=== PATIENT | male | born 1930 | race Caucasian/White ===

== ENCOUNTER 2016-07-25 04:34 | Inpatient (IN) | payer MEDICARE, OTHER ==
[2016-07-25] VITALS (8 sets, daily range): BP systolic 119–176; BP diastolic 66–91; PULSE 71–127; RESP 16–20; TEMP 97.4–99.8; O2SAT 93–99
[~2016-07-25 04:34] MED LIST: AMOX500T PO; ASPI81 CHEW; CARV12.5 PO; ENOX40P SQ; FOLI1 PO; FURO1TAB93 PO; LISI5 PO; LORTA5 PO; MAGN64 PO; MIRTA15 PO; MULT-65 PO; NOVO7030P2 SQ; PRIM250T PO; SIMV20TA PO; TAMS0.4C67 PO; THERM PO; THIA100T PO; ULTR50TA5 PO
[2016-07-25] MEDS ORDERED: SODIUM CHLORIDE 0.9% FLUSH 10 ML FLUSH IVF PRN (04:45)
[2016-07-25] MEDS ORDERED: CARV12.5 PO (04:54)
[2016-07-25] MEDS ORDERED: THIAPOW36 (04:54)
[2016-07-25] MEDS ORDERED: MAGN64 PO (04:54)
[2016-07-25] MEDS ORDERED: MULT1TAB84 PO (04:54)
[2016-07-25] MEDS ORDERED: LISI-519 PO (04:54)
[2016-07-25] MEDS ORDERED: FURO1TAB60 PO (04:54)
[2016-07-25] MEDS ORDERED: NOVO7030P2 SQ (04:54)
[2016-07-25] MEDS ORDERED: PRIM250T5 PO (04:54)
[2016-07-25] MEDS ORDERED: MIRTA15 PO (04:54)
[2016-07-25] MEDS ORDERED: ASPI81CH37 CHEW (04:54)
[2016-07-25] MEDS ORDERED: TAMS5CAP PO (04:54)
[2016-07-25] MEDS ORDERED: FOLI5CAP PO (04:54)
[2016-07-25] MEDS ORDERED: ZOCO20TA PO (04:54)
--- NOTE | 2016-07-25 06:06 | RADRPT ---
EXAM DATE/TIME: 07/25/2016 05:46 [place] COMPARISON: CT BRAIN W/O CONTRAST, December 15, 2014, 12:21. INDICATIONS : Trauma; fall. RADIATION DOSE: 47.79 CTDIvol (mGy) MEDICAL HISTORY : Cardiovascular disease. Congestive heart failure. Chronic obstructive pulmonary disease.Hypertension, asthma, GERD, Diabetes SURGICAL HISTORY : CABG vasectomy, neck fusion ENCOUNTER: Initial ACUITY: 1 day PAIN SCALE: Non-responsive LOCATION: cranial TECHNIQUE: Multiple contiguous axial images were obtained of the head. Using automated exposure control and adj ustment of the mA and/or kV according to patient size, radiation dose was kept as low as reasonably a chievable to obtain optimal diagnostic quality images. FINDINGS: CEREBRUM: Atrophy. There is prominence to the ventricular system which is symmetrical in nature. This is somewh at out of proportion to the sulcal pattern. The appearance is stable from the prior study. No evidenc e of midline shift, mass lesion, hemorrhage or acute infarction. No extra-axial fluid collections ar e seen. POSTERIOR FOSSA: The cerebellum and brainstem are intact. The 4th ventricle is midline. The cerebellopontine angle i s unremarkable. EXTRACRANIAL: The visualized portion of the orbits is intact. Craniocervical fusion hardware seen at the occiput. SKULL: The calvaria is intact. No evidence of skull fracture. CONCLUSION: 1. No acute intracranial abnormality. 2. Prominence of the ventricular system which is stable from the prior exam. Although this could rela te to more centralized forms of atrophy I cannot exclude normal pressure hydrocephaly. Bradley Melendez Jr., MD on July 25, 2016 at 6:02 Board Certified Radiologist. This report was verified electronically.
[2016-07-25 06:52] LABS: AUTOMATED NEUTROPHIL # 7.3 TH/MM3 (1.8-7.7); BASOPHIL # 0.1 TH/MM3 (0-0.2); BASOPHIL % 0.6 % (0.0-2.0); EOSINOPHIL # 0.3 TH/MM3 (0-0.4); EOSINOPHIL % 3.3 % (0.0-4.0); HEMO FLAGS DIFF FINAL; LYMPH % 10.1 % (9.0-44.0); MEAN CELL VOLUME 93.3 FL (80.0-100.0); MEAN CORPUSCULAR HGB CONC 33.2 % (32.0-36.0); MONO % 8.2 % (0.0-8.0); NEUT % 77.8 % (16.0-70.0); PLATELET COUNT 197 TH/MM3 (150-450); RED BLOOD COUNT 3.97 MIL/MM3 (4.50-5.90); RED CELL DISTRIBUTION WIDTH 14.5 % (11.6-17.2); WHITE BLOOD COUNT 9.4 TH/MM3 (4.0-11.0)
[2016-07-25 07:04] LABS: BICARBONATE 27.5 MEQ/L (21.0-32.0); POTASSIUM 4.1 MEQ/L (3.5-5.1)
--- NOTE | 2016-07-25 07:35 | PD ---
HPI Chief Complaint: Altered Mental Status Time Seen by Provider: 04:37 Travel History International Travel<30 days: No Contact w/Intl Traveler<30days: No Traveled to known affect area: No History of Present Illness HPI Patient's 85 years old. He arrives by EMS. He was found face down on a phone mattress in his house. Evidently he fell there and slept throughout the course of the night. The family members called EMS. They were concerned he has urinary tract infection. The ER the patient offers no history. He suffers w memory loss PFSH Past Medical History Arthritis: Yes Asthma: Yes Atrial Fibrillation: Yes Anxiety: Yes Depression: Yes Cancer: Yes (skin) Cardiac Catheterization: Yes (12 STENTS TOTAL) Cardiovascular Problems: Yes High Cholesterol: Yes Chest Pain: Yes Congestive Heart Failure: Yes COPD: Yes Cerebrovascular Accident: No Coronary Artery Disease: Yes Diabetes: Yes Diminished Hearing: No Endocrine: Yes Gastrointestinal Disorders: No Genitourinary: No Hypertension: Yes Immune Disorder: No Musculoskeletal: Yes Neurologic: Yes (TREMORS) Psychiatric: Yes Reproductive: Yes Respiratory: Yes Migraines: No Renal Failure: No Tetanus Vaccination: > 5 Years Influenza Vaccination: Yes PNEUMOCCOCAL Vaccine (Year): 1 Past Surgical History Abdominal Surgery: No AICD: No Arteriovenous Shunt: No Body Medical Devices: 13 cardiac stents Cardiac Surgery: Yes (cardiac bypass with 13 stents placed 1998) Coronary Artery Bypass Graft: Yes (5 VESSEL) Coronary Stent: Yes Ear Surgery: No Endocrine Surgery: No Eye Surgery: No Genitourinary Surgery: Yes (vasectomy) Gynecologic Surgery: No Insulin Pump: No Joint Replacement: No Neurologic Surgery: Yes (C3-4 FUSION) Oral Surgery: No Pacemaker: No Thoracic Surgery: No Other Surgery: Yes (DISCECTOMY x 3;VERTBRAE REMOVAL) Social History Alcohol Use: No Tobacco Use: No (QUIT IN 1984) Substance Use: No Allergies-Medications (Allergen,Severity, Reaction): Coded Allergies: Plavix (Unverified Allergy, Severe, bleeding, 07/25/16) Lipitor (Unverified Allergy, Intermediate, bleeding, 07/25/16) Uncoded Allergies: morph (Allergy, Unknown, makes him crazy, 05/06/14) Reported Meds & Prescriptions Reported Meds & Active Scripts Active Levaquin (Levofloxacin) 500 Mg Tab 500 Mg PO DAILY Ultram (Tramadol HCl) 50 Mg Tab 50 Mg PO Q6H PRN Reported Thiamine HCl 1 Pow Pow Flomax (Tamsulosin HCl) 0.4 Mg Cap 0.4 Mg PO DAILY Zocor (Simvastatin) 20 Mg Tab 20 Mg PO HS Primidone 250 Mg Tab 250 Mg PO TID Multivitamin Adults (Multiple Vitamins W/ Minerals) 1 Tab 1 Tab PO DAILY Mirtazapine 15 Mg Tab 15 Mg PO HS Mag64 (Magnesium Chloride) 64 Mg Tab 64 Mg PO BID Lisinopril 5 Mg Tab 5 Mg PO DAILY Novolin 70-30 Inj (Insulin Human Isoph/Insulin Regular) 1,000 Unit/10 Ml Vial 5 Units SQ DAILY NEB Folic Acid 5 Mg Cap 1 Mg PO DAILY Lasix (Furosemide) 40 Mg Tab 40 Mg PO DAILY Coreg (Carvedilol) 12.5 Mg Tab 12.5 Mg PO BID Aspirin Low Dose (Aspirin) 81 Mg Chew 81 Mg CHEW DAILY Review of Systems ROS Limitations: Altered Mental Status Physical Exam Narrative GENERAL: 85-year-old male no acute distress SKIN: Focused skin assessment warm/dry. HEAD: Atraumatic. Normocephalic. Contusion about the forehead approximately 1 cm linear in configuration EYES: Pupils equal and round. No scleral icterus. No injection or drainage. ENT: No nasal bleeding or discharge. Mucous membranes pink and moist. NECK: Trachea midline. No JVD. CARDIOVASCULAR: Regular rate and rhythm. No murmur appreciated. RESPIRATORY: No accessory muscle use. Clear to auscultation. Breath sounds equal bilaterally. GASTROINTESTINAL: Abdomen soft, non-tender, nondistended. Hepatic and splenic margins not palpable. MUSCULOSKELETAL: No obvious deformities. No clubbing. No cyanosis. No edema. NEUROLOGICAL: Awake and alert. No obvious cranial nerve deficits. Motor grossly within normal limits. Normal speech. PSYCHIATRIC: Appropriate mood and affect; insight and judgment normal. Data Data Last Documented VS Vital Signs Date Time Temp Pulse Resp B/P Pulse Ox O2 Delivery O2 Flow Rate FiO2 07/25/16 08:33 97.6 84 20 97 Room Air 07/25/16 05:00 158/72 Orders Electrocardiogram (07/25/16 04:37) Basic Metabolic Panel (Bmp) (07/25/16 04:37) Complete Blood Count With Diff (07/25/16 04:37) Urinalysis - C+S If Indicated (07/25/16 04:37) Blood Glucose (07/25/16 04:37) Ecg Monitoring (07/25/16 04:37) Iv Access Insert/Monitor (07/25/16 04:37) Oximetry (07/25/16 04:37) Sodium Chloride 0.9% Flush (Ns Flush) (07/25/16 04:45) Ct Brain W/O Iv Contrast(Rout) (07/25/16 05:39) Sodium Chlorid 0.9% 500 Ml Inj (Ns 500 M (07/25/16 08:15) Urine Culture (07/25/16 08:00) Admit Order (Ed Use Only) (07/25/16 09:43) Admit To Inpatient (07/25/16 ) Vital Signs (Adult) Q4H (07/25/16 09:43) Activity Oob With Assistance (07/25/16 09:43) Diet Heart Healthy (07/25/16 Breakfast) Sodium Chlor 0.9% 1000 Ml Inj (Ns 1000 M (07/25/16 10:00) Sodium Chloride 0.9% Flush (Ns Flush) (07/25/16 09:45) Sodium Chloride 0.9% Flush (Ns Flush) (07/25/16 21:00) Acetaminophen (Tylenol) (07/25/16 09:45) Ondansetron Inj (Zofran Inj) (07/25/16 09:45) Magnesium Hydroxide Liq (Milk Of Magnesi (07/25/16 09:45) Basic Metabolic Panel (Bmp) (07/26/16 06:00) Complete Blood Count With Diff (07/26/16 06:00) Resp Oxygen Benedicto C Titrat 1-4 L (07/25/16 ) Pt Request For Service (07/25/16 09:43) Heparin Inj (Heparin Inj) (07/25/16 11:00) Naloxone Inj (Narcan Inj) (07/25/16 09:45) Inpatient Certification (07/25/16 ) Ceftriaxone Inj (Rocephin Inj) (07/25/16 11:00) Labs Laboratory Tests Test 07/25/16 07/25/16 04:44 08:00 White Blood Count 9.4 TH/MM3 Red Blood Count 3.97 MIL/MM3 Hemoglobin 12.3 GM/DL Hematocrit 37.0 % Mean Corpuscular Volume 93.3 FL Mean Corpuscular Hemoglobin 31.0 PG Mean Corpuscular Hemoglobin 33.2 % Concent Red Cell Distribution Width 14.5 % Platelet Count 197 TH/MM3 Mean Platelet Volume 10.7 FL Neutrophils (%) (Auto) 77.8 % Lymphocytes (%) (Auto) 10.1 % Monocytes (%) (Auto) 8.2 % Eosinophils (%) (Auto) 3.3 % Basophils (%) (Auto) 0.6 % Neutrophils # (Auto) 7.3 TH/MM3 Lymphocytes # (Auto) 1.0 TH/MM3 Monocytes # (Auto) 0.8 TH/MM3 Eosinophils # (Auto) 0.3 TH/MM3 Basophils # (Auto) 0.1 TH/MM3 CBC Comment DIFF FINAL Differential Comment Sodium Level 138 MEQ/L Potassium Level 4.1 MEQ/L Chloride Level 102 MEQ/L Carbon Dioxide Level 27.5 MEQ/L Anion Gap 9 MEQ/L Blood Urea Nitrogen 25 MG/DL Creatinine 0.89 MG/DL Estimat Glomerular Filtration 81 ML/MIN Rate Random Glucose 170 MG/DL Calcium Level 9.0 MG/DL Urine Color YELLOW Urine Turbidity HAZY Urine pH 5.5 Urine Specific [place] 1.021 Urine Protein 30 mg/dL Urine Glucose (UA) NEG mg/dL Urine Ketones 10 mg/dL Urine Occult Blood SMALL Urine Nitrite NEG Urine Bilirubin NEG Urine Urobilinogen 2.0 MG/DL Urine Leukocyte Esterase LARGE Urine RBC 3 /hpf Urine WBC 97 /hpf Urine WBC Clumps MANY Urine Bacteria MANY /hpf Urine Mucus FEW /lpf Microscopic Urinalysis Comment CATH-CULTURE IND MDM Medical Decision Making Medical Screen Exam Complete: Yes Emergency Medical Condition: Yes Medical Record Reviewed: Yes Interpretation(s) CBC & BMP Diagram 07/25/16 04:44 Differential Diagnosis Altered mental status due to infection or metabolic abnormality, intracranial bleed, polypharmacy Narrative Course CBC & BMP Diagram 07/25/16 04:[address] Rhodes. Erna for discharge. Patient poor candidate for any intervention for potential normal pressure hydrocephalus. The patient has an appointment with Dr. Rhodes and [place]. UA pending at time of discharge. Oncoming provider to follow up UA and disposition appropriately. Diagnosis Primary Impression: Falls Qualified Code: W19.XXXA - Falls, initial encounter Referrals: Michael Lorenzo MD 2 days Additional Instructions: You have a choice when it comes to health care, and we are glad that you chose [facility]. Hopefully, we have met your expectations on today's visit. You are welcome to return to [facility] at any time, as we are committed to meeting the health care needs of our community. Scripts Levofloxacin (Levaquin)500 Mg [id number] Mg PO DAILY #9 TAB Ref 0 Prov:Stewart Bruce MD 07/25/16 Disposition: 01 DISCHARGE HOME Condition: Stable (ERASED) Jared Will MD Jul 25, 2016 07:35
[2016-07-25] MEDS ORDERED: SODIUM CHLORID 0.9% 500 ML INJ 500 ML IV ONE (08:15)
[2016-07-25 08:46] LABS: BACTERIA, URINE MANY /hpf; BLOOD, URINE SMALL (NEG); COMMENT (UR) CATH-CULTURE IND; CULTURE IF INDICATED CATH CULTURE IND; GLUCOSE,URINE NEG (NEG); KETONE, URINE 10 mg/dL (NEG); MUCUS URINE FEW /lpf (OCC); NITRITE,URINE NEG (NEG); PH, URINE 5.5 (5.0-8.5); URINE COLOR YELLOW (YELLW/STRAW)
[2016-07-25] MEDS ORDERED: LEVA500T PO (09:00)
[2016-07-25] MEDS ORDERED: LEVOFLOXACIN 500 MG TAB PO ONE (09:00)
--- NOTE | 2016-07-25 09:04 | PD ---
Physical Exam Date Seen by Provider: Jul 25, 2016 Time Seen by Provider: 09:00 Narrative The patient was signed out to me by Dr. Jared Will awaiting a urinalysis. Dr. Will states that he suspected a UTI in this patient. Urinalysis confirms there is a UTI. The patient was given Levaquin 500 mg times one dose here in the emergency department. Data Data Last Documented VS Vital Signs Date Time Temp Pulse Resp B/P Pulse Ox O2 Delivery O2 Flow Rate FiO2 07/25/16 08:33 97.6 84 20 97 Room Air 07/25/16 05:00 158/72 Orders Electrocardiogram (07/25/16 04:37) Basic Metabolic Panel (Bmp) (07/25/16 04:37) Complete Blood Count With Diff (07/25/16 04:37) Urinalysis - C+S If Indicated (07/25/16 04:37) Blood Glucose (07/25/16 04:37) Ecg Monitoring (07/25/16 04:37) Iv Access Insert/Monitor (07/25/16 04:37) Oximetry (07/25/16 04:37) Sodium Chloride 0.9% Flush (Ns Flush) (07/25/16 04:45) Ct Brain W/O Iv Contrast(Rout) (07/25/16 05:39) Sodium Chlorid 0.9% 500 Ml Inj (Ns 500 M (07/25/16 08:15) Urine Culture (07/25/16 08:00) Levofloxacin (Levaquin) (07/25/16 09:00) Labs Laboratory Tests Test 07/25/16 07/25/16 04:44 08:00 White Blood Count 9.4 TH/MM3 Red Blood Count 3.97 MIL/MM3 Hemoglobin 12.3 GM/DL Hematocrit 37.0 % Mean Corpuscular Volume 93.3 FL Mean Corpuscular Hemoglobin 31.0 PG Mean Corpuscular Hemoglobin 33.2 % Concent Red Cell Distribution Width 14.5 % Platelet Count 197 TH/MM3 Mean Platelet Volume 10.7 FL Neutrophils (%) (Auto) 77.8 % Lymphocytes (%) (Auto) 10.1 % Monocytes (%) (Auto) 8.2 % Eosinophils (%) (Auto) 3.3 % Basophils (%) (Auto) 0.6 % Neutrophils # (Auto) 7.3 TH/MM3 Lymphocytes # (Auto) 1.0 TH/MM3 Monocytes # (Auto) 0.8 TH/MM3 Eosinophils # (Auto) 0.3 TH/MM3 Basophils # (Auto) 0.1 TH/MM3 CBC Comment DIFF FINAL Differential Comment Sodium Level 138 MEQ/L Potassium Level 4.1 MEQ/L Chloride Level 102 MEQ/L Carbon Dioxide Level 27.5 MEQ/L Anion Gap 9 MEQ/L Blood Urea Nitrogen 25 MG/DL Creatinine 0.89 MG/DL Estimat Glomerular Filtration 81 ML/MIN Rate Random Glucose 170 MG/DL Calcium Level 9.0 MG/DL Urine Color YELLOW Urine Turbidity HAZY Urine pH 5.5 Urine Specific [place] 1.021 Urine Protein 30 mg/dL Urine Glucose (UA) NEG mg/dL Urine Ketones 10 mg/dL Urine Occult Blood SMALL Urine Nitrite NEG Urine Bilirubin NEG Urine Urobilinogen 2.0 MG/DL Urine Leukocyte Esterase LARGE Urine RBC 3 /hpf Urine WBC 97 /hpf Urine WBC Clumps MANY Urine Bacteria MANY /hpf Urine Mucus FEW /lpf Microscopic Urinalysis Comment CATH-CULTURE IND MDM Medical Record Reviewed: Yes Supervised Visit with ARTURO: No Narrative Course Patient signed out to me by Dr. Will awaiting a urinalysis. Urinalysis and firms UTI. The patient is hemodynamically stable. The patient does have a history of dementia. He is somewhat agitated and combative with staff. He's been given Levaquin 500 mg times one dose. He'll be discharged back to his home where he has a caregiver. He was given a 500 cc bolus for his mild dehydration. Diagnosis Primary Impression: Falls Qualified Code: W19.XXXA - Falls, initial encounter Additional Impressions: Urinary tract infection Mild dehydration Additional Instruction: You have a choice when it comes to health care, and we are glad that you chose [facility]. Hopefully, we have met your expectations on today's visit. You are welcome to return to [facility] at any time, as we are committed to meeting the health care needs of our community. Med/Other Pt SpecificInfo: Prescription(s) given Scripts Levofloxacin (Levaquin)500 Mg [id number] Mg PO DAILY #9 TAB Ref 0 Prov:Stewart Bruce MD 07/25/16 Disposition: 01 DISCHARGE HOME Condition: Stable Stewart Bruce MD Jul 25, 2016 09:04
[2016-07-25] MEDS ORDERED: ONDANSETRON HCL 4 MG/2 ML VIAL IVP PRN (09:45)
[2016-07-25] MEDS ORDERED: MAGNESIUM HYDROXIDE SUSP 30 ML CUP PO PRN (09:45)
[2016-07-25] MEDS ORDERED: LORazepam 2 MG/ML VIAL IV PUSH ONE (09:45)
[2016-07-25] MEDS ORDERED: LEVOFLOXACIN 500 MG PREMIX INJ 100 ML IV ONE (09:45)
[2016-07-25] MEDS ORDERED: ACETAMINOPHEN 325 MG TAB PO PRN (09:45)
[2016-07-25] MEDS ORDERED: NALOXONE HCL 0.4 MG/ML AMP IV PRN (09:45)
[2016-07-25] MEDS ORDERED: SODIUM CHLORIDE 0.9% FLUSH 10 ML FLUSH IV FLUSH PRN (09:45)
[2016-07-25] MEDS: SODIUM CHLOR 0.9% 1000 ML INJ 1,000 ML IV SCH ×2 (10:50→23:53)
[2016-07-25] MEDS: cefTRIAXone INJ 1,000 MG in SODIUM CHLORIDE 0.9% INJ 100 ML IV SCH (10:50)
[2016-07-25] MEDS: HEPARIN SODIUM - SQ 10,000 UNITS/ML VIAL SQ SCH ×2 (10:53→23:54)
--- NOTE | 2016-07-25 15:42 | EKG ---
Date Performed: 07/25/2016 Time Performed: 04:48:40 PTAGE: 85 years EKG: ATRIAL FIBRILLATION With controlled ventricular rate Slight nonspecific intraventricular co nduction delay Diffuse T wave abnomality, slightly more prominent than the prior tracing, but nonspec ific, cannot exclude ischemia ABNORMAL ECG PREVIOUS TRACING : 12/08/2014 18.35 DOCTOR: Corona Mcdaniel Interpretating Date/Time 07/25/2016 15:42:01
--- NOTE | 2016-07-25 16:26 | HHI.HP ---
[facility] [place] [facility] Primary [facility] Physician Michael Lorenzo MD Admission Diagnosis Uti, dehydration, dementia, fall Diagnoses: Chief Complaint: Acute mental status change, UTI. Travel History International Travel<30 Days: No Contact w/Intl Traveler <30 Da: No Traveled to Known Affected Are: No History of Present Illness History obtained mostly from Chart review. Patient is unable to participate in the interview in any meaningful way. Mr. Mccoy is an 85 year old male with a history of CAD, CHF, Afib who presented to the ED due to altered mental status and urinary tract infection. Patient was evaluated by ED physician and initially the plan was to discharge patient home with family members. However, patient's daughter indicated that patient's mental status is not his baseline and she is concerned about infection induce delirium. Patient himself is unable to provide any meaningful information. He is alert but his speech is very incoherent. On arrival, BP 119/ 90, T 98.7, P 89, R 18, 95% on room air. WBC 9.4 with neutrophil 77.8%, Na 138, K 4.1, BUN 25, Creatinine 0.89, Glucose 170. Urinalysis shows evidence of UTI. Review of Systems ROS Limitations: Clinical Condition, Altered Mental Status Past Family Social History Past Medical History CAD, skin cancer, hyperlipidemia, Tremors, Anxiety/Depression. Past Surgical History CABG, 13 cardiac stents, Vasectomy, C3-4 fusion Reported Medications Thiamine HCl 1 Pow Pow Flomax (Tamsulosin HCl) 0.4 Mg Cap 0.4 Mg PO DAILY Zocor (Simvastatin) 20 Mg Tab 20 Mg PO HS Primidone 250 Mg Tab 250 Mg PO TID Multivitamin Adults (Multiple Vitamins W/ Minerals) 1 Tab 1 Tab PO DAILY Mirtazapine 15 Mg Tab 15 Mg PO HS Mag64 (Magnesium Chloride) 64 Mg Tab 64 Mg PO BID Lisinopril 5 Mg Tab 5 Mg PO DAILY Novolin 70-30 Inj (Insulin Human Isoph/Insulin Regular) 1,000 Unit/10 Ml Vial 5 Units SQ DAILY NEB Folic Acid 5 Mg Cap 1 Mg PO DAILY Lasix (Furosemide) 40 Mg Tab 40 Mg PO DAILY Coreg (Carvedilol) 12.5 Mg Tab 12.5 Mg PO BID Aspirin Low Dose (Aspirin) 81 Mg Chew 81 Mg CHEW DAILY Allergies: Coded Allergies: Plavix (Unverified Allergy, Severe, bleeding, 07/25/16) Lipitor (Unverified Allergy, Intermediate, bleeding, 07/25/16) Uncoded Allergies: morph (Allergy, Unknown, makes him crazy, 05/06/14) Family History Unable to obtain due to clinical condition. Social History No use of tobacco, alcohol or illicit drugs. Physical Exam Vital Signs Vital Signs Date Time Temp Pulse Resp B/P Pulse Ox O2 Delivery O2 Flow Rate FiO2 07/25/16 11:00 86 20 176/91 98 Room Air 07/25/16 10:51 99 21 07/25/16 08:33 97.6 84 20 97 Room Air 07/25/16 05:00 71 16 158/72 99 Room Air 07/25/16 04:36 98.7 89 18 119/90 95 Physical Exam GENERAL: This is a well-nourished, well-developed patient, in no apparent distress. Patient is confused, incoherent speech. SKIN: No rashes, ecchymoses or lesions. Warm and dry. HEAD: Atraumatic. Normocephalic. No temporal or scalp tenderness. EYES: Pupils equal round and reactive. No injection or drainage. ENT: Nose without bleeding, purulent drainage or septal hematoma. Airway patent. NECK: Trachea midline. No lymphadenopathy. Supple, nontender, no meningeal signs. CARDIOVASCULAR: Regular rate and rhythm without murmurs, gallops, or rubs. No JVD. RESPIRATORY: Clear to auscultation. Breath sounds equal bilaterally. No wheezes , rales, or rhonchi. GASTROINTESTINAL: Abdomen soft, non-tender, nondistended. No guarding. MUSCULOSKELETAL: Extremities without clubbing, cyanosis, or edema. NEUROLOGICAL: Awake and alert. Incoherent speech. Laboratory Laboratory Tests Test 07/25/16 07/25/16 04:44 08:00 White Blood Count 9.4 Red Blood Count 3.97 Hemoglobin 12.3 Hematocrit 37.0 Mean Corpuscular Volume 93.3 Mean Corpuscular Hemoglobin 31.0 Mean Corpuscular Hemoglobin 33.2 Concent Red Cell Distribution Width 14.5 Platelet Count 197 Mean Platelet Volume 10.7 Neutrophils (%) (Auto) 77.8 Lymphocytes (%) (Auto) 10.1 Monocytes (%) (Auto) 8.2 Eosinophils (%) (Auto) 3.3 Basophils (%) (Auto) 0.6 Neutrophils # (Auto) 7.3 Lymphocytes # (Auto) 1.0 Monocytes # (Auto) 0.8 Eosinophils # (Auto) 0.3 Basophils # (Auto) 0.1 CBC Comment DIFF FINAL Differential Comment Sodium Level 138 Potassium Level 4.1 Chloride Level 102 Carbon Dioxide Level 27.5 Anion Gap 9 Blood Urea Nitrogen 25 Creatinine 0.89 Estimat Glomerular Filtration 81 Rate Random Glucose 170 Calcium Level 9.0 Urine Color YELLOW Urine Turbidity HAZY Urine pH 5.5 Urine Specific [place] 1.021 Urine Protein 30 Urine Glucose (UA) NEG Urine Ketones 10 Urine Occult Blood SMALL Urine Nitrite NEG Urine Bilirubin NEG Urine Urobilinogen 2.0 Urine Leukocyte Esterase LARGE Urine RBC 3 Urine WBC 97 Urine WBC Clumps MANY Urine Bacteria MANY Urine Mucus FEW Microscopic Urinalysis Comment CATH-CULTURE IND Date/Time Procedure Status Source Growth 07/25/16 08:00 Urine Culture Received Urine Catheterized Urine Pending Result Diagram: 07/25/16 0444 07/25/16 0444 Imaging Last Impressions Head CT 07/25/16 0539 Signed Impressions: Service Date/Time: Monday, July 25, 2016 05:46 - CONCLUSION: 1. No acute intracranial abnormality. 2. Prominence of the ventricular system which is stable from the prior exam. Although this could relate to more centralized forms of atrophy I cannot exclude normal pressure hydrocephaly. Bradley Melendez Jr., MD Assessment and Plan Problem List: (1) UTI (lower urinary tract infection) ICD Code: N39.0 Status: Acute (2) Acute delirium ICD Code: R41.0 Status: Acute (3) CAD (coronary artery disease) ICD Code: I25.10 Status: Chronic (4) DM (diabetes mellitus) ICD Code: E11.9 Status: Chronic Assessment and Plan Mr. Mccoy is an 85 year old male with a history of CAD, hypertension, hyperlipidemia who presented to the ED due to acute delirium, possibility of infection. On arrival, urinalysis indicate evidence of UTI. Patient was subsequently admitted to the hospital. - Urinary tract infection - likely due to E. Coli. - Will start patient on Ceftriaxone 1g Q24 hours. - Follow urine culture. - Continue NS @ 100cc/hour for now. May decrease or stop fluid tomorrow. - PT consult. Patient will likely need SNF placement. - Palliative consult maybe of help as well. - Acute delirium - Per patient's daughter, apparently this is not his baseline. - Will monitor. - CAD s/p CABG, Stents - Hyperlipidemia - Hypertension - Continue home meds including aspirin, Lisinopril, Carvedilol, statin. Full code. Heparin SQ. Physician Certification 2 Midnight Certification Type: Admission for Inpatient Services Order for Inpatient Services The services are ordered in accordance with Medicare regulations or non- Medicare payer requirements, as applicable. In the case of services not specified as inpatient-only, they are appropriately provided as inpatient services in accordance with the 2-midnight benchmark. Estimated LOS (days): 2 days is the estimated time the patient will need to remain in the hospital, assuming treatment plan goals are met and no additional complications. Post-Hospital Plan: Not yet determined Evie Olea DO Jul 25, 2016 16:26
[2016-07-25] MEDS: SODIUM CHLORIDE 0.9% FLUSH 10 ML FLUSH IV FLUSH SCH (21:00)
[2016-07-26] VITALS (7 sets, daily range): BP systolic 104–149; BP diastolic 56–75; PULSE 72–113; RESP 18–20; TEMP 97.2–98.1; O2SAT 92–97
[2016-07-26 08:12] LABS: AUTOMATED NEUTROPHIL # 8.5 TH/MM3 (1.8-7.7); BASOPHIL # 0.1 TH/MM3 (0-0.2); BASOPHIL % 0.8 % (0.0-2.0); EOSINOPHIL # 0.1 TH/MM3 (0-0.4); EOSINOPHIL % 0.9 % (0.0-4.0); HEMATOCRIT 35.5 % (39.0-51.0); HEMO FLAGS DIFF FINAL; LYMPH % 8.8 % (9.0-44.0); LYMPHOCYTE # 0.9 TH/MM3 (1.0-4.8); MEAN CELL VOLUME 92.1 FL (80.0-100.0); MEAN CORPUSCULAR HEMOGLOBIN 32.1 PG (27.0-34.0); MEAN CORPUSCULAR HGB CONC 34.9 % (32.0-36.0); MONO % 9.3 % (0.0-8.0); NEUT % 80.2 % (16.0-70.0); PLATELET COUNT 188 TH/MM3 (150-450); RED BLOOD COUNT 3.86 MIL/MM3 (4.50-5.90); RED CELL DISTRIBUTION WIDTH 14.3 % (11.6-17.2); WHITE BLOOD COUNT 10.6 TH/MM3 (4.0-11.0)
[2016-07-26 08:30] LABS: BICARBONATE 22.4 MEQ/L (21.0-32.0)
[2016-07-26] MEDS: SODIUM CHLORIDE 0.9% FLUSH 10 ML FLUSH IV FLUSH SCH ×2 (09:00→21:00)
[2016-07-26] MEDS: CARVEDILOL 12.5 MG TAB PO SCH ×2 (09:30→22:10)
[2016-07-26] MEDS: LISINOPRIL 5 MG TAB PO SCH (09:30)
[2016-07-26] MEDS: ASPIRIN 81 MG CHEW TAB CHEW SCH (09:30)
[2016-07-26] MEDS: TAMSULOSIN HCL 0.4 MG CAP PO SCH (09:30)
[2016-07-26] MEDS: PRIMIDONE 250 MG TAB PO SCH ×3 (09:33→17:36)
[2016-07-26] MEDS: HEPARIN SODIUM - SQ 10,000 UNITS/ML VIAL SQ SCH ×2 (09:34→22:10)
[2016-07-26] MEDS: SODIUM CHLOR 0.9% 1000 ML INJ 1,000 ML IV SCH ×3 (09:34→22:11)
[2016-07-26] MEDS: cefTRIAXone INJ 1,000 MG in SODIUM CHLORIDE 0.9% INJ 100 ML IV SCH (09:34)
--- NOTE | 2016-07-26 16:23 | HHI.PR ---
Subjective Remarks Follow up for UTI, altered mental status. Patient remains confused. No fever, chills. His mentation may be slightly better than yesterday. Objective Vitals Vital Signs Date Time Temp Pulse Resp B/P Pulse Ox O2 Delivery O2 Flow Rate FiO2 07/26/16 12:23 98.0 86 20 116/56 97 07/26/16 08:13 98.0 113 20 149/67 94 07/26/16 08:08 96 21 07/26/16 04:00 97.2 83 18 131/71 92 07/26/16 00:00 97.3 72 20 148/63 94 07/25/16 20:00 97.4 75 20 151/66 94 07/25/16 18:38 99.8 127 20 134/75 93 Result Diagram: 07/26/16 0744 07/26/16 0744 Imaging Last Impressions Head CT 07/25/16 0539 Signed Impressions: Service Date/Time: Monday, July 25, 2016 05:46 - CONCLUSION: 1. No acute intracranial abnormality. 2. Prominence of the ventricular system which is stable from the prior exam. Although this could relate to more centralized forms of atrophy I cannot exclude normal pressure hydrocephaly. Bradley Melendez Jr., MD Objective Remarks GENERAL: Alert, NAD. Confused. SKIN: Warm and dry. HEAD: Normocephalic. EYES: No scleral icterus. No injection or drainage. NECK: Supple, trachea midline. No JVD or lymphadenopathy. CARDIOVASCULAR: Regular rate and rhythm without murmurs, gallops, or rubs. RESPIRATORY: Breath sounds equal bilaterally. No accessory muscle use. GASTROINTESTINAL: Abdomen soft, non-tender, nondistended. MUSCULOSKELETAL: No cyanosis, or edema. BACK: Nontender without obvious deformity. No CVA tenderness. Procedures None. A/P Problem List: (1) UTI (lower urinary tract infection) ICD Code: N39.0 Status: Acute (2) Acute delirium ICD Code: R41.0 Status: Acute (3) CAD (coronary artery disease) ICD Code: I25.10 Status: Chronic (4) DM (diabetes mellitus) ICD Code: E11.9 Status: Chronic Assessment and Plan Mr. Mccoy is an 85 year old male with a history of CAD, hypertension, hyperlipidemia who presented to the ED due to acute delirium, possibility of infection. On arrival, urinalysis indicate evidence of UTI. Patient was subsequently admitted to the hospital. - Urinary tract infection - likely due to E. Coli. - Continue Ceftriaxone 1g Q24 hours. - Follow urine culture. - Continue NS @ 100cc/hour for now. - PT consult. Patient will likely need SNF placement. - Palliative consult maybe of help as well. - Acute delirium - Per patient's daughter, patient's current mental status is worse than his baseline. - Wean off restraints. - CT head showed no acute findings. CT head report indicated that NPH could not be ruled out. However, I discussed the CT head study with one of the neuroradiologist who reviewed CT head and states that CT head does not suggest NPH. No further work up would be needed. I discussed this with patient's daughter (power of employment law attorney). - CAD s/p CABG, Stents - Hyperlipidemia - Hypertension - Continue home meds including aspirin, Lisinopril, Carvedilol, statin. Full code. Heparin SQ. Evie Olea DO Jul 26, 2016 4:23 pm
[2016-07-26] MEDS: MIRTAZAPINE 15 MG TAB PO SCH (22:09)
[2016-07-26] MEDS: PRAVASTATIN SOD 40 MG TAB PO SCH (22:10)
[2016-07-27 00:16] VITALS: BP 127/60; PULSE 89; RESP 22; TEMP 97.6; O2SAT 97
[2016-07-27 04:55] VITALS: BP 140/71; PULSE 87; RESP 21; TEMP 96.7; O2SAT 100
[2016-07-27 08:00] VITALS: BP 144/63; PULSE 77; RESP 20; TEMP 97.9; O2SAT 95
[2016-07-27] MEDS: SODIUM CHLORIDE 0.9% FLUSH 10 ML FLUSH IV FLUSH SCH ×2 (09:00→21:00)
[2016-07-27] MEDS: CARVEDILOL 12.5 MG TAB PO SCH ×2 (10:44→21:27)
[2016-07-27] MEDS: PRIMIDONE 250 MG TAB PO SCH ×3 (10:44→18:08)
[2016-07-27] MEDS: TAMSULOSIN HCL 0.4 MG CAP PO SCH (10:44)
[2016-07-27] MEDS: ASPIRIN 81 MG CHEW TAB CHEW SCH (10:44)
[2016-07-27] MEDS: LISINOPRIL 5 MG TAB PO SCH (10:44)
[2016-07-27 12:00] VITALS: BP 138/66; PULSE 74; RESP 18; TEMP 96.9; O2SAT 96
[2016-07-27] MEDS: SODIUM CHLOR 0.9% 1000 ML INJ 1,000 ML IV SCH ×2 (12:00→21:25)
--- NOTE | 2016-07-27 12:05 | HHI.PR ---
Subjective Remarks Follow up for UTI, altered mental status. Patient appears to be less confused. Sentences are coherent in nature. Wants restraints off. He denies any hematuria , dysuria, fever, chills. Objective Vitals Vital Signs Date Time Temp Pulse Resp B/P Pulse Ox O2 Delivery O2 Flow Rate FiO2 07/27/16 08:00 97.9 77 20 144/63 95 07/27/16 04:55 96.7 87 21 140/71 100 07/27/16 00:16 97.6 89 22 127/60 97 07/26/16 20:22 98.1 83 20 119/75 94 07/26/16 16:50 97.9 80 20 104/57 97 07/26/16 12:23 98.0 86 20 116/56 97 I/O 07/26/16 07/26/16 07/26/16 07/27/16 07/27/16 07/27/16 07:00 15:00 23:00 07:00 15:00 23:00 Intake Total 120 ml Balance 120 ml Intake Oral 120 ml # Voids 0 1 # Bowel Movements 1 0 0 Result Diagram: 07/26/16 0744 07/26/16 0744 Imaging Last Impressions Head CT 07/25/16 0539 Signed Impressions: Service Date/Time: Monday, July 25, 2016 05:46 - CONCLUSION: 1. No acute intracranial abnormality. 2. Prominence of the ventricular system which is stable from the prior exam. Although this could relate to more centralized forms of atrophy I cannot exclude normal pressure hydrocephaly. Bradley Melendez Jr., MD Objective Remarks GENERAL: Alert, NAD. Confused. SKIN: Warm and dry. HEAD: Normocephalic. EYES: No scleral icterus. No injection or drainage. NECK: Supple, trachea midline. No JVD or lymphadenopathy. CARDIOVASCULAR: Regular rate and rhythm without murmurs, gallops, or rubs. RESPIRATORY: Breath sounds equal bilaterally. No accessory muscle use. GASTROINTESTINAL: Abdomen soft, non-tender, nondistended. MUSCULOSKELETAL: No cyanosis, or edema. BACK: Nontender without obvious deformity. No CVA tenderness. Procedures None. A/P Problem List: (1) UTI (lower urinary tract infection) ICD Code: N39.0 Status: Acute (2) Acute delirium ICD Code: R41.0 Status: Acute (3) CAD (coronary artery disease) ICD Code: I25.10 Status: Chronic (4) DM (diabetes mellitus) ICD Code: E11.9 Status: Chronic Assessment and Plan Mr. Mccoy is an 85 year old male with a history of CAD, hypertension, hyperlipidemia who presented to the ED due to acute delirium, possibility of infection. On arrival, urinalysis indicate evidence of UTI. Patient was subsequently admitted to the hospital. - Urinary tract infection - Cx grew Lactobacillus which is usually a normal kian. - Continue Ceftriaxone 1g Q24 hours. Will discontinue Ceftriaxone - Follow urine culture. - Continue NS @ 100cc/hour for now. - PT consult. Patient will likely need SNF placement. - Palliative consult maybe of help as well. - Acute delirium - Per patient's daughter, patient's current mental status is worse than his baseline. - Wean off restraints. - CT head showed no acute findings. CT head report indicated that NPH could not be ruled out. However, I discussed the CT head study with one of the neuroradiologist who reviewed CT head and states that CT head does not suggest NPH. No further work up would be needed. I discussed this with patient's daughter (power of blender/braze applicator). - CAD s/p CABG, Stents - Hyperlipidemia - Hypertension - Continue home meds including aspirin, Lisinopril, Carvedilol, statin. Full code. Heparin SQ. Discussed with CM - patient's daughter is working with [facility] for possible placement. Evie Olea DO Jul 27, 2016 12:05
[2016-07-27] MEDS: cefTRIAXone INJ 1,000 MG in SODIUM CHLORIDE 0.9% INJ 100 ML IV SCH (12:08)
[2016-07-27] MEDS: HEPARIN SODIUM - SQ 10,000 UNITS/ML VIAL SQ SCH ×2 (12:09→22:39)
[2016-07-27 16:00] VITALS: BP 118/69; PULSE 74; RESP 18; TEMP 97.1; O2SAT 95
[2016-07-27 21:03] VITALS: BP 118/80; PULSE 72; RESP 22; TEMP 96.9; O2SAT 98
[2016-07-27] MEDS: MIRTAZAPINE 15 MG TAB PO SCH (21:26)
[2016-07-27] MEDS: PRAVASTATIN SOD 40 MG TAB PO SCH (21:27)
[2016-07-28 00:21] VITALS: BP 113/64; PULSE 55; RESP 22; TEMP 98.2; O2SAT 94
[2016-07-28 06:20] VITALS: BP 92/61; PULSE 60; RESP 17; TEMP 97.8; O2SAT 96
[2016-07-28] MEDS: SODIUM CHLOR 0.9% 1000 ML INJ 1,000 ML IV SCH (08:00)
[2016-07-28] MEDS: SODIUM CHLORIDE 0.9% FLUSH 10 ML FLUSH IV FLUSH SCH (09:00)
[2016-07-28 09:01] VITALS: BP 125/70; PULSE 75; RESP 16; TEMP 96.8; O2SAT 99
[2016-07-28] MEDS: CARVEDILOL 12.5 MG TAB PO SCH (09:27)
[2016-07-28] MEDS: TAMSULOSIN HCL 0.4 MG CAP PO SCH (09:27)
[2016-07-28] MEDS: PRIMIDONE 250 MG TAB PO SCH ×2 (09:27→13:13)
[2016-07-28] MEDS: LISINOPRIL 5 MG TAB PO SCH (09:28)
[2016-07-28] MEDS: ASPIRIN 81 MG CHEW TAB CHEW SCH (09:28)
[2016-07-28 12:47] VITALS: BP 130/60; PULSE 90; RESP 16; TEMP 97.2; O2SAT 95
[2016-07-28] MEDS: HEPARIN SODIUM - SQ 10,000 UNITS/ML VIAL SQ SCH (13:13)
--- NOTE | 2016-07-28 14:41 | HHI.DS ---
Discharge Summary Admission Date Jul 25, 2016 at 9:45 am Discharge Date: Jul 28, 2016 Admitting Diagnosis Uti, dehydration, dementia, fall (1) UTI (lower urinary tract infection) ICD Code: N39.0 Diagnosis: Principal (2) Acute delirium ICD Code: R41.0 (3) CAD (coronary artery disease) ICD Code: I25.10 (4) DM (diabetes mellitus) ICD Code: E11.9 Procedures None. Brief History - From Admission History obtained mostly from Chart review. Patient is unable to participate in the interview in any meaningful way. Mr. Mccoy is an 85 year old male with a history of CAD, CHF, Afib who presented to the ED due to altered mental status and urinary tract infection. Patient was evaluated by ED physician and initially the plan was to discharge patient home with family members. However, patient's daughter indicated that patient's mental status is not his baseline and she is concerned about infection induce delirium. Patient himself is unable to provide any meaningful information. He is alert but his speech is very incoherent. On arrival, BP 119/ 90, T 98.7, P 89, R 18, 95% on room air. WBC 9.4 with neutrophil 77.8%, Na 138, K 4.1, BUN 25, Creatinine 0.89, Glucose 170. Urinalysis shows evidence of UTI. CBC/BMP: 07/26/16 0744 07/26/16 0744 Significant Findings Laboratory Tests Test 07/26/16 07:44 Red Blood Count 3.86 MIL/MM3 (4.50-5.90) Hemoglobin 12.4 GM/DL (13.0-17.0) Hematocrit 35.5 % (39.0-51.0) Neutrophils (%) (Auto) 80.2 % (16.0-70.0) Lymphocytes (%) (Auto) 8.8 % (9.0-44.0) Monocytes (%) (Auto) 9.3 % (0.0-8.0) Neutrophils # (Auto) 8.5 TH/MM3 (1.8-7.7) Lymphocytes # (Auto) 0.9 TH/MM3 (1.0-4.8) Monocytes # (Auto) 1.0 TH/MM3 (0-0.9) Random Glucose 183 MG/DL (74-106) Imaging Last Impressions Head CT 07/25/16 0539 Signed Impressions: Service Date/Time: Monday, July 25, 2016 05:46 - CONCLUSION: 1. No acute intracranial abnormality. 2. Prominence of the ventricular system which is stable from the prior exam. Although this could relate to more centralized forms of atrophy I cannot exclude normal pressure hydrocephaly. Bradley Melendez Jr., MD PE at Discharge GENERAL: Alert, NAD. Confused. SKIN: Warm and dry. HEAD: Normocephalic. EYES: No scleral icterus. No injection or drainage. NECK: Supple, trachea midline. No JVD or lymphadenopathy. CARDIOVASCULAR: Regular rate and rhythm without murmurs, gallops, or rubs. RESPIRATORY: Breath sounds equal bilaterally. No accessory muscle use. GASTROINTESTINAL: Abdomen soft, non-tender, nondistended. MUSCULOSKELETAL: No cyanosis, or edema. BACK: Nontender without obvious deformity. No CVA tenderness. Pt update on day of discharge Patient reports no acute concerns. He remains somewhat confused. Wants his IV out. Hospital Course Mr. Mccoy is an 85 year old male with a history of CAD, hypertension, hyperlipidemia who presented to the ED due to acute delirium, possibility of infection. On arrival, urinalysis indicate evidence of UTI. Patient was subsequently admitted to the hospital. - Urinary tract infection - Cx grew Lactobacillus which is usually a normal kian. - Patient received Ceftriaxone empirically. No further need for any abx. - Acute delirium - Per patient's daughter, patient's current mental status is worse than his baseline. - CT head showed no acute findings. CT head report indicated that NPH could not be ruled out. However, I discussed the CT head study with one of the neuroradiologist who reviewed CT head and states that CT head does not suggest NPH. No further work up would be needed. I discussed this with patient's daughter (power of internal affairs investigator). - CAD s/p CABG, Stents - Hyperlipidemia - Hypertension - Continue home meds including aspirin, Lisinopril, Carvedilol, statin. Full code. Patient is being discharged to [facility]. Pt Condition on Discharge: Good Discharge Disposition: Discharge to SNF Discharge Time: <= 30 minutes Discharge Instructions DIET: Follow Instructions for: Heart Healthy Diet Activities you can perform: Regular-No Restrictions Continued Medications: Aspirin (Aspirin Low Dose) 81 Mg Chew 81 MG CHEW DAILY Ref 0 TAB Carvedilol (Coreg) 12.5 Mg Tab 12.5 MG PO BID #60 Ref 0 TAB Folic Acid (Folic Acid) 5 Mg Cap 1 MG PO DAILY Nutritional Supplement Ref 0 CAP Furosemide (Lasix) 40 Mg Tab 40 MG PO DAILY #30 Ref 0 TAB Insulin Human Isophane-Regular 70-30 Inj (Novolin 70-30 Inj) 1,000 Unit/10 Ml Vial 5 UNITS SQ DAILY NEB Blood Sugar Management Ref 0 ML Lisinopril (Lisinopril) 5 Mg Tab 5 MG PO DAILY Blood Pressure Management #30 Ref 0 TAB Magnesium Chloride (Mag64) 64 Mg Tab 64 MG PO BID Ref 0 TAB Mirtazapine (Mirtazapine) 15 Mg Tab 15 MG PO HS Depression Control #30 Ref 0 TAB Multiple Vitamins W/ Minerals (Multivitamin Adults) 1 Tab 1 TAB PO DAILY Nutritional Supplement Ref 0 TAB Primidone (Primidone) 250 Mg Tab 250 MG PO TID Control Seizures #90 Ref 0 TAB Simvastatin (Zocor) 20 Mg Tab 20 MG PO HS Cholesterol Management #30 Ref 0 TAB Tamsulosin (Flomax) 0.4 Mg Cap 0.4 MG PO DAILY Manage Prostate Problems #30 Ref 0 CAP Thiamine HCl (Thiamine HCl) 1 Pow Pow Tramadol (Ultram) 50 Mg Tab 50 MG PO Q6H PRN PAIN #20 Ref 0 TAB Discontinued Medications: Levofloxacin (Levaquin) 500 Mg Tab 500 MG PO DAILY Infection #9 Ref 0 TAB Evie Oela DO Jul 28, 2016 14:41
== END 2016-07-28 17:50 | DRG 690 ==
LOC: NEPE 04:34 → EEVIPCON 09:45 → NEDA 09:45 → N05B 18:03
PROVIDERS: ADMIT Hospitalist; ATTEND Hospitalist
DX: N39.0 Urinary tract infection, site not specified (principal); F03.90 Unspecified dementia, unspecified severity, without behavioral disturbance, psychotic disturbance, mood disturbance, and anxiety; R41.0 Disorientation, unspecified; I48.91 Unspecified atrial fibrillation; E86.0 Dehydration; J44.9 Chronic obstructive pulmonary disease, unspecified; E11.9 Type 2 diabetes mellitus without complications; I10 Essential (primary) hypertension; F32.9 Major depressive disorder, single episode, unspecified; I50.9 Heart failure, unspecified; E78.00 Pure hypercholesterolemia, unspecified; E78.5 Hyperlipidemia, unspecified; F41.9 Anxiety disorder, unspecified; I25.10 Atherosclerotic heart disease of native coronary artery without angina pectoris; M19.90 Unspecified osteoarthritis, unspecified site; J45.909 Unspecified asthma, uncomplicated; R41.3 Other amnesia; R25.1 Tremor, unspecified; Z79.4 Long term (current) use of insulin; Z87.891 Personal history of nicotine dependence; Z85.828 Personal history of other malignant neoplasm of skin; Z95.1 Presence of aortocoronary bypass graft; Z95.5 Presence of coronary angioplasty implant and graft; Z88.5 Allergy status to narcotic agent; Z88.8 Allergy status to other drugs, medicaments and biological substances
CPT/HCPCS: 70450; 80048; 81001; 85025; 87086; 93005; 96360; J0696; J1644; J2060; J7030; J7040

== ENCOUNTER 2016-07-28 23:01 | Observation (INO) | payer MEDICARE, OTHER ==
[~2016-07-28] VITALS: Ht 185.4 cm; Wt 75.9 kg
[~2016-07-28 23:01] MED LIST changes: -AMOX500T PO; -ASPI81 CHEW; +ASPI81CH37 CHEW; -ENOX40P SQ; -FOLI1 PO; +FOLI5CAP PO; +FURO1TAB60 PO; -FURO1TAB93 PO; +LEVA500T PO; +LISI-519 PO; -LISI5 PO; -LORTA5 PO; -MULT-65 PO; +MULT1TAB84 PO; -PRIM250T PO; +PRIM250T5 PO; -SIMV20TA PO; -TAMS0.4C67 PO; +TAMS5CAP PO; -THERM PO; -THIA100T PO; +THIAPOW36; +ZOCO20TA PO
[2016-07-28 23:35] VITALS: BP 166/98; PULSE 83; RESP 22; TEMP 98.4; O2SAT 98
[2016-07-28] MEDS ORDERED: HALOPERIDOL LACTATE 5 MG/ML AMP IV PUSH ONE (23:45)
[2016-07-29] VITALS (8 sets, daily range): BP systolic 127–167; BP diastolic 72–88; PULSE 66–97; RESP 18–20; TEMP 97.7–98.8; O2SAT 95–98
[2016-07-29] MEDS ORDERED: HALOPERIDOL LACTATE 5 MG/ML AMP IV PUSH ONE
--- NOTE | 2016-07-29 00:21 | PD ---
HPI Chief Complaint: Altered Mental Status Time Seen by Provider: 23:33 Travel History International Travel<30 days: No Contact w/Intl Traveler<30days: No Traveled to known affect area: No History of Present Illness HPI This is an 85-year-old male who presents to the emergency department having been discharged earlier today after being hospitalized for 3 days for urinary tract infection, sent back for agitation. The patient's [id number] was present at the time of initial assessment and reports that he's been very confused and very agitated which is unlike him. She feels like this has been the case since the infection. Prior to this he was cooperative and oriented and conversational. Patient is unable to provide any history. Patient's family member was asked to get a badge by security and left the room and then never returned and did not answer her phone so is unable to obtain any additional information. PFSH Past Medical History Arthritis: Yes Asthma: Yes Atrial Fibrillation: Yes Anxiety: Yes Depression: Yes Cancer: Yes (skin) Cardiac Catheterization: Yes (12 STENTS TOTAL) Cardiovascular Problems: Yes High Cholesterol: Yes Chest Pain: Yes Congestive Heart Failure: Yes COPD: Yes Cerebrovascular Accident: No Coronary Artery Disease: Yes Diabetes: Yes Diminished Hearing: No Endocrine: Yes Gastrointestinal Disorders: No Genitourinary: No Hypertension: Yes Immune Disorder: No Musculoskeletal: Yes Neurologic: Yes (TREMORS) Psychiatric: Yes Reproductive: Yes Respiratory: Yes Migraines: No Renal Failure: No PNEUMOCCOCAL Vaccine (Year): 1 Past Surgical History Abdominal Surgery: No AICD: No Arteriovenous Shunt: No Body Medical Devices: 13 cardiac stents Cardiac Surgery: Yes (cardiac bypass with 13 stents placed 1998) Coronary Artery Bypass Graft: Yes (5 VESSEL) Coronary Stent: Yes Ear Surgery: No Endocrine Surgery: No Eye Surgery: No Genitourinary Surgery: Yes (vasectomy) Gynecologic Surgery: No Insulin Pump: No Joint Replacement: No Neurologic Surgery: Yes (C3-4 FUSION) Oral Surgery: No Pacemaker: No Thoracic Surgery: No Other Surgery: Yes (DISCECTOMY x 3;VERTBRAE REMOVAL) Social History Alcohol Use: No Tobacco Use: No (QUIT IN 1984) Substance Use: No Allergies-Medications (Allergen,Severity, Reaction): Coded Allergies: Plavix (Unverified Allergy, Severe, bleeding, 07/28/16) Lipitor (Unverified Allergy, Intermediate, bleeding, 07/28/16) Uncoded Allergies: morph (Allergy, Unknown, makes him crazy, 05/06/14) Reported Meds & Prescriptions Reported Meds & Active Scripts Active Ultram (Tramadol HCl) 50 Mg Tab 50 Mg PO Q6H PRN Reported Thiamine HCl 1 Pow Pow Flomax (Tamsulosin HCl) 0.4 Mg Cap 0.4 Mg PO DAILY Zocor (Simvastatin) 20 Mg Tab 20 Mg PO HS Primidone 250 Mg Tab 250 Mg PO TID Multivitamin Adults (Multiple Vitamins W/ Minerals) 1 Tab 1 Tab PO DAILY Mirtazapine 15 Mg Tab 15 Mg PO HS Mag64 (Magnesium Chloride) 64 Mg Tab 64 Mg PO BID Lisinopril 5 Mg Tab 5 Mg PO DAILY Novolin 70-30 Inj (Insulin Human Isoph/Insulin Regular) 1,000 Unit/10 Ml Vial 5 Units SQ DAILY NEB Folic Acid 5 Mg Cap 1 Mg PO DAILY Lasix (Furosemide) 40 Mg Tab 40 Mg PO DAILY Coreg (Carvedilol) 12.5 Mg Tab 12.5 Mg PO BID Aspirin Low Dose (Aspirin) 81 Mg Chew 81 Mg CHEW DAILY Review of Systems ROS Limitations: Poor Historian Physical Exam Narrative GENERAL: Frail elderly male in no acute distress SKIN: Warm and dry. HEAD: Atraumatic. Normocephalic. EYES: Pupils equal and round. No injection or drainage. ENT: Dry mucous membranes NECK: Trachea midline. CARDIOVASCULAR: Regular rate and rhythm. No murmur appreciated. Sternotomy scar RESPIRATORY: Clear to auscultation. Breath sounds equal bilaterally. GASTROINTESTINAL: Abdomen soft, non-tender, nondistended. MUSCULOSKELETAL: No obvious deformities. NEUROLOGICAL: Oriented to person but not time or place. No obvious cranial nerve deficits. Moving all extremities. PSYCHIATRIC: Agitated, poor insight and judgment Data Data Last Documented VS Vital Signs Date Time Temp Pulse Resp B/P Pulse Ox O2 Delivery O2 Flow Rate FiO2 07/28/16 23:37 78 20 98 Room Air 07/28/16 23:35 98.4 166/98 Orders Complete Blood Count With Diff (07/28/16 23:36) Urinalysis - C+S If Indicated (07/28/16 23:36) ^ Insert Iv (07/28/16 23:36) Haloperidol Inj (Haldol Inj) (07/28/16 23:45) Haloperidol Inj (Haldol Inj) (07/29/16 00:00) Comprehensive Metabolic Panel (07/28/16 23:20) Urine Culture (07/29/16 00:00) Ceftriaxone Inj (Rocephin Inj) (07/29/16 01:00) Admit Order (Ed Use Only) (07/29/16 01:01) Restraints Non-Violent YAEL.Q3H (07/29/16 01:02) Labs Laboratory Tests Test 07/28/16 07/28/16 07/29/16 23:20 23: 00:00 Sodium Level 139 MEQ/L Potassium Level 4.4 MEQ/L Chloride Level 106 MEQ/L Carbon Dioxide Level 28.2 MEQ/L Anion Gap 5 MEQ/L Blood Urea Nitrogen 20 MG/DL Creatinine 0.82 MG/DL Estimat Glomerular Filtration 89 ML/MIN Rate Random Glucose 194 MG/DL Calcium Level 8.7 MG/DL Total Bilirubin 0.5 MG/DL Aspartate Amino Transf 19 U/L (AST/SGOT) Alanine Aminotransferase 24 U/L (ALT/SGPT) Alkaline Phosphatase 129 U/L Total Protein 7.2 GM/DL Albumin 2.9 GM/DL White Blood Count 8.6 TH/MM3 Red Blood Count 3.91 MIL/MM3 Hemoglobin 12.3 GM/DL Hematocrit 36.4 % Mean Corpuscular Volume 93.3 FL Mean Corpuscular Hemoglobin 31.5 PG Mean Corpuscular Hemoglobin 33.7 % Concent Red Cell Distribution Width 14.5 % Platelet Count 198 TH/MM3 Mean Platelet Volume 9.7 FL Neutrophils (%) (Auto) 72.6 % Lymphocytes (%) (Auto) 13.8 % Monocytes (%) (Auto) 7.2 % Eosinophils (%) (Auto) 5.2 % Basophils (%) (Auto) 1.2 % Neutrophils # (Auto) 6.2 TH/MM3 Lymphocytes # (Auto) 1.2 TH/MM3 Monocytes # (Auto) 0.6 TH/MM3 Eosinophils # (Auto) 0.4 TH/MM3 Basophils # (Auto) 0.1 TH/MM3 CBC Comment DIFF FINAL Differential Comment Urine Color YELLOW Urine Turbidity CLEAR Urine pH 5.5 Urine Specific [place] 1.018 Urine Protein TRACE mg/dL Urine Glucose (UA) 150 mg/dL Urine Ketones NEG mg/dL Urine Occult Blood SMALL Urine Nitrite NEG Urine Bilirubin NEG Urine Urobilinogen LESS THAN 2.0 MG/DL Urine Leukocyte Esterase LARGE Urine RBC 6 /hpf Urine WBC 10 /hpf Urine Squamous Epithelial <1 /hpf Cells Microscopic Urinalysis Comment CULTURE INDICATED MDM Medical Decision Making Medical Screen Exam Complete: Yes Emergency Medical Condition: Yes Interpretation(s) Laboratory Tests Test 07/28/16 23:20 White Blood Count 8.6 TH/MM3 Red Blood Count 3.91 MIL/MM3 Hemoglobin 12.3 GM/DL Hematocrit 36.4 % Mean Corpuscular Volume 93.3 FL Mean Corpuscular Hemoglobin 31.5 PG Mean Corpuscular Hemoglobin 33.7 % Concent Red Cell Distribution Width 14.5 % Platelet Count 198 TH/MM3 Mean Platelet Volume 9.7 FL Neutrophils (%) (Auto) 72.6 % Lymphocytes (%) (Auto) 13.8 % Monocytes (%) (Auto) 7.2 % Eosinophils (%) (Auto) 5.2 % Basophils (%) (Auto) 1.2 % Neutrophils # (Auto) 6.2 TH/MM3 Lymphocytes # (Auto) 1.2 TH/MM3 Monocytes # (Auto) 0.6 TH/MM3 Eosinophils # (Auto) 0.4 TH/MM3 Basophils # (Auto) 0.1 TH/MM3 CBC Comment DIFF FINAL Differential Comment Sodium Level 139 MEQ/L Potassium Level 4.4 MEQ/L Chloride Level 106 MEQ/L Carbon Dioxide Level 28.2 MEQ/L Anion Gap 5 MEQ/L Blood Urea Nitrogen 20 MG/DL Creatinine 0.82 MG/DL Estimat Glomerular Filtration 89 ML/MIN Rate Random Glucose 194 MG/DL Calcium Level 8.7 MG/DL Total Bilirubin 0.5 MG/DL Aspartate Amino Transf 19 U/L (AST/SGOT) Alanine Aminotransferase 24 U/L (ALT/SGPT) Alkaline Phosphatase 129 U/L Total Protein 7.2 GM/DL Albumin 2.9 GM/DL Differential Diagnosis Urinary tract infection, dementia, stroke Narrative Course This is an 85-year-old male who presents to the emergency department with delirium at evidently has persisted despite being treated for urinary tract infection. He was unable to be managed at his assisted so he was returned here. Labs are all reassuring. Patient was quite combative in the ER. He was given 2 doses of IV Haldol and he had to be restrained because he was aggressive towards staff. Patient will be admitted for medical management and case management. He did have a CT scan of his head performed on admission which was reassuring. We may consider an MRI if more history can be obtained from the family that the patient truly is altered compared to his baseline, although I suspect this reflects chronic dementia. Physician Communication Physician Communication Discussed with Dr. Sanabria Diagnosis Primary Impression: Agitation Admitting Information Admitting Physician Requests: Observation Kaila Diggs MD Jul 29, 2016 00:21
[2016-07-29 00:23] LABS: HEMATOCRIT 36.4 % (39.0-51.0); MEAN CELL VOLUME 93.3 FL (80.0-100.0); MEAN CORPUSCULAR HEMOGLOBIN 31.5 PG (27.0-34.0); RED BLOOD COUNT 3.91 MIL/MM3 (4.50-5.90); WHITE BLOOD COUNT 8.6 TH/MM3 (4.0-11.0)
[2016-07-29 00:24] LABS: LYMPH % 13.8 % (9.0-44.0); MEAN CORPUSCULAR HGB CONC 33.7 % (32.0-36.0); NEUT % 72.6 % (16.0-70.0); PLATELET COUNT 198 TH/MM3 (150-450); RED CELL DISTRIBUTION WIDTH 14.5 % (11.6-17.2)
[2016-07-29 00:25] LABS: BLOOD UREA NITROGEN 20 MG/DL (7-18); GLOMERULAR FILTRATION RATE 89 ML/MIN (>89)
[2016-07-29 00:25] LABS: AUTOMATED NEUTROPHIL # 6.2 TH/MM3 (1.8-7.7); BASOPHIL # 0.1 TH/MM3 (0-0.2); BASOPHIL % 1.2 % (0.0-2.0); EOSINOPHIL # 0.4 TH/MM3 (0-0.4); EOSINOPHIL % 5.2 % (0.0-4.0); HEMO FLAGS DIFF FINAL; LYMPHOCYTE # 1.2 TH/MM3 (1.0-4.8); MONO % 7.2 % (0.0-8.0)
[2016-07-29 00:28] LABS: ALKALINE PHOSPHATASE 129 U/L (45-117); ALT (GPT) 24 U/L (12-78); ANION GAP 5 MEQ/L (5-15); AST (GOT) 19 U/L (15-37); BICARBONATE 28.2 MEQ/L (21.0-32.0); CHLORIDE 106 MEQ/L (98-107); POTASSIUM 4.4 MEQ/L (3.5-5.1); SODIUM (NA) 139 MEQ/L (136-145); TOTAL BILIRUBIN ADULT 0.5 MG/DL (0.2-1.0)
[2016-07-29 00:35] LABS: BLOOD, URINE SMALL (NEG); COMMENT (UR) CULTURE INDICATED; CULTURE IF INDICATED CULTURE INDICATED; GLUCOSE,URINE 150 mg/dL (NEG); KETONE, URINE NEG (NEG); NITRITE,URINE NEG (NEG); PH, URINE 5.5 (5.0-8.5); SQUAMOUS EPITHELIAL CELL URINE <1 /hpf (0-5); URINE COLOR YELLOW (YELLW/STRAW)
[2016-07-29] MEDS ORDERED: cefTRIAXone INJ 1,000 MG in SODIUM CHLORIDE 0.9% INJ 100 ML IV ONE (01:00)
[2016-07-29] MEDS ORDERED: NALOXONE HCL 0.4 MG/ML AMP IV PRN (01:30)
[2016-07-29] MEDS ORDERED: ONDANSETRON HCL 4 MG/2 ML VIAL IVP PRN (01:30)
[2016-07-29] MEDS ORDERED: traMADol HCL 50 MG TAB PO PRN (01:30)
[2016-07-29] MEDS ORDERED: SODIUM CHLORIDE 0.9% FLUSH 10 ML FLUSH IV FLUSH PRN (01:30)
[2016-07-29] MEDS: INSULIN ASPART SUPPLEMENTAL SCALE SQ SCH ×4 (07:35→21:59)
[2016-07-29] MEDS: SODIUM CHLORIDE 0.9% FLUSH 10 ML FLUSH IV FLUSH SCH ×2 (09:00→21:00)
[2016-07-29] MEDS: FUROSEMIDE 40 MG TAB PO SCH (10:14)
[2016-07-29] MEDS: CARVEDILOL 12.5 MG TAB PO SCH ×2 (10:15→21:58)
[2016-07-29] MEDS: ASPIRIN 81 MG CHEW TAB CHEW SCH (10:15)
[2016-07-29] MEDS: TAMSULOSIN HCL 0.4 MG CAP PO SCH (10:15)
[2016-07-29] MEDS: PRIMIDONE 250 MG TAB PO SCH ×3 (10:15→18:00)
[2016-07-29] MEDS: LISINOPRIL 5 MG TAB PO SCH (10:16)
[2016-07-29] MEDS ORDERED: HALOPERIDOL LACTATE 5 MG/ML AMP IM PRN (11:15)
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
[2016-07-29] MEDS ORDERED: QUEtiapine FUMARATE 25 MG TAB PO SCH (12:00)
--- NOTE | 2016-07-29 20:21 | HHI.HP ---
[facility] Service [facility] Primary Care Physician Vipin Dowell MD Admission Diagnosis urinary tract infection, agitation Diagnoses: Chief Complaint: Agitation. Travel History International Travel<30 Days: No Contact w/Intl Traveler <30 Da: No Traveled to Known Affected Are: No History of Present Illness Mr. Mccoy is an 85 year old male with a history of CAD, CHF, Afib who presented to the ED one day after discharge to a SNF with complaints of agitation. He was admitted on 07/25/2016 with altered mental status and suspected UTI. He was empirically treated with Ceftriaxone. However, cx grew lactobacillus which is typically part of the normal kian. Patient did not have leukocytosis, fever. Urine culture during this admission is unremarkable. He returned from SNF due to agitation. Time of this interview patient is restrained with bilateral wrist restraints. He cannot participate reliably to this interview. Review of Systems ROS Limitations: Clinical Condition, Other (review of system is not fully obtained due to patient's clinical condition.) Past Family Social History Past Medical History CAD, skin cancer, hyperlipidemia, Tremors, Anxiety/Depression. Past Surgical History CABG, 13 cardiac stents, Vasectomy, C3-4 fusion Reported Medications Ultram (Tramadol HCl) 50 Mg Tab 50 Mg PO Q6H PRN Reported Thiamine HCl 1 Pow Pow Flomax (Tamsulosin HCl) 0.4 Mg Cap 0.4 Mg PO DAILY Zocor (Simvastatin) 20 Mg Tab 20 Mg PO HS Primidone 250 Mg Tab 250 Mg PO TID Multivitamin Adults (Multiple Vitamins W/ Minerals) 1 Tab 1 Tab PO DAILY Mirtazapine 15 Mg Tab 15 Mg PO HS Mag64 (Magnesium Chloride) 64 Mg Tab 64 Mg PO BID Lisinopril 5 Mg Tab 5 Mg PO DAILY Novolin 70-30 Inj (Insulin Human Isoph/Insulin Regular) 1,000 Unit/10 Ml Vial 5 Units SQ DAILY NEB Folic Acid 5 Mg Cap 1 Mg PO DAILY Lasix (Furosemide) 40 Mg Tab 40 Mg PO DAILY Coreg (Carvedilol) 12.5 Mg Tab 12.5 Mg PO BID Aspirin Low Dose (Aspirin) 81 Mg Chew 81 Mg CHEW DAILY Allergies: Coded Allergies: Plavix (Unverified Allergy, Severe, bleeding, 07/28/16) Lipitor (Unverified Allergy, Intermediate, bleeding, 07/28/16) Uncoded Allergies: morph (Allergy, Unknown, makes him crazy, 05/06/14) Family History Could not be obtained from the patient. Social History No tobacco, alcohol or illicit drug use. Quit smoking in 1984. Physical Exam Vital Signs Vital Signs Date Time Temp Pulse Resp B/P Pulse Ox O2 Delivery O2 Flow Rate FiO2 07/29/16 16:15 97.7 86 128/75 97 07/29/16 11:18 75 18 139/76 95 Room Air 07/29/16 10:18 80 18 127/80 97 Room Air 07/29/16 07:15 71 20 167/74 96 Room Air 07/29/16 07:15 96 Room Air 07/29/16 05:59 68 18 165/72 98 Room Air 07/29/16 04:48 66 18 144/74 98 Room Air 07/29/16 01:35 69 18 162/72 97 Room Air 07/28/16 23:37 78 20 98 Room Air 07/28/16 23:35 98.4 83 22 166/98 98 Physical Exam GENERAL: This is a well-nourished, well-developed patient, currently on bilateral wrist restraints. SKIN: No rashes, ecchymoses or lesions. Warm and dry. HEAD: Atraumatic. Normocephalic. No temporal or scalp tenderness. EYES: Pupils equal round and reactive. No injection or drainage. ENT: Nose without bleeding, purulent drainage or septal hematoma. Airway patent. NECK: Trachea midline. No lymphadenopathy. Supple, nontender, no meningeal signs. CARDIOVASCULAR: Regular rate and rhythm without murmurs, gallops, or rubs. No JVD. RESPIRATORY: Clear to auscultation. Breath sounds equal bilaterally. No wheezes , rales, or rhonchi. GASTROINTESTINAL: Abdomen soft, non-tender, nondistended. No guarding. MUSCULOSKELETAL: Extremities without clubbing, cyanosis, or edema. NEUROLOGICAL: Awake and alert. Incoherent speech. Laboratory Laboratory Tests Test 07/28/16 07/28/16 07/29/16 07/29/16 23:20 23:29 00:00 03:15 Sodium Level 139 Potassium Level 4.4 Chloride Level 106 Carbon Dioxide Level 28.2 Anion Gap 5 Blood Urea Nitrogen 20 Creatinine 0.82 Estimat Glomerular Filtration 89 Rate Random Glucose 194 Calcium Level 8.7 Total Bilirubin 0.5 Aspartate Amino Transf 19 (AST/SGOT) Alanine Aminotransferase 24 (ALT/SGPT) Alkaline Phosphatase 129 Total Protein 7.2 Albumin 2.9 White Blood Count 8.6 Red Blood Count 3.91 Hemoglobin 12.3 Hematocrit 36.4 Mean Corpuscular Volume 93.3 Mean Corpuscular Hemoglobin 31.5 Mean Corpuscular Hemoglobin 33.7 Concent Red Cell Distribution Width 14.5 Platelet Count 198 Mean Platelet Volume 9.7 Neutrophils (%) (Auto) 72.6 Lymphocytes (%) (Auto) 13.8 Monocytes (%) (Auto) 7.2 Eosinophils (%) (Auto) 5.2 Basophils (%) (Auto) 1.2 Neutrophils # (Auto) 6.2 Lymphocytes # (Auto) 1.2 Monocytes # (Auto) 0.6 Eosinophils # (Auto) 0.4 Basophils # (Auto) 0.1 CBC Comment DIFF FINAL Differential Comment Urine Color YELLOW Urine Turbidity CLEAR Urine pH 5.5 Urine Specific [place] 1.018 Urine Protein TRACE Urine Glucose (UA) 150 Urine Ketones NEG Urine Occult Blood SMALL Urine Nitrite NEG Urine Bilirubin NEG Urine Urobilinogen LESS THAN 2.0 Urine Leukocyte Esterase LARGE Urine RBC 6 Urine WBC 10 Urine Squamous Epithelial <1 Cells Microscopic Urinalysis Comment CULTURE INDICATED Prostate Specific Antigen 0.54 Date/Time Procedure Status Source Growth 07/29/16 00:00 Urine Culture - Preliminary Resulted Urine Clean Catch NO GROWTH IN 24 HOURS. Result Diagram: 07/28/16 2326 07/28/16 9717 Assessment and Plan Assessment and Plan Mr. Mccoy is an 85 year old male with a history of CAD, CHF, Afib who presented to the ED one day after discharge to a SNF with complaints of agitation. He was admitted on 07/25/2016 with altered mental status and suspected UTI. He was empirically treated with Ceftriaxone. However, cx grew lactobacillus which is typically part of the normal kian. Patient did not have leukocytosis, fever. Urine culture during this admission is unremarkable. - Acute delirium - Patient was evaluated by psychiatry. Seroquel 25 mg BID and Haldol IM PRN recommended. - We'll administer Seroquel 25 mg tonight and continue Seroquel 25 mg twice a day. - Patient is requiring 2 point restraints. If no improvement, patient may need in-patient psychiatry treatment. - May consider Zyprexa as well if okay with Psychiatry. - Hypertension - CAD - Continue Aspirin 81mg, Carvedilol 12.5mg BID, Lisinopril 5mg - BPH - continue Flomax. Full code. SCDs. Discussed with KRISTINA. Evie Olea DO Jul 29, 2016 8:21 pm
[2016-07-29] MEDS: MIRTAZAPINE 15 MG TAB PO SCH (21:58)
[2016-07-29] MEDS ORDERED: QUEtiapine FUMARATE 25 MG TAB PO ONE (23:30)
[2016-07-30 00:17] VITALS: BP 124/79; PULSE 84; RESP 20; TEMP 97.7; O2SAT 96
[2016-07-30 04:33] VITALS: BP 134/66; PULSE 83; RESP 24; TEMP 98.4; O2SAT 90
[2016-07-30] MEDS: INSULIN ASPART SUPPLEMENTAL SCALE SQ SCH ×4 (06:52→21:00)
[2016-07-30 07:29] LABS: AUTOMATED NEUTROPHIL # 6.3 TH/MM3 (1.8-7.7); BASOPHIL # 0.1 TH/MM3 (0-0.2); EOSINOPHIL # 0.4 TH/MM3 (0-0.4); EOSINOPHIL % 4.8 % (0.0-4.0); HEMATOCRIT 34.2 % (39.0-51.0); HEMO FLAGS DIFF FINAL; LYMPH % 15.3 % (9.0-44.0); LYMPHOCYTE # 1.4 TH/MM3 (1.0-4.8); MEAN CELL VOLUME 91.7 FL (80.0-100.0); MEAN CORPUSCULAR HEMOGLOBIN 31.7 PG (27.0-34.0); MEAN CORPUSCULAR HGB CONC 34.6 % (32.0-36.0); MONO % 9.1 % (0.0-8.0); NEUT % 69.8 % (16.0-70.0); PLATELET COUNT 207 TH/MM3 (150-450); RED BLOOD COUNT 3.74 MIL/MM3 (4.50-5.90); RED CELL DISTRIBUTION WIDTH 14.3 % (11.6-17.2)
[2016-07-30 07:39] VITALS: BP 137/70; PULSE 76; RESP 18; TEMP 97.7; O2SAT 94
[2016-07-30 07:48] LABS: ALKALINE PHOSPHATASE 123 U/L (45-117); ALT (GPT) 22 U/L (12-78); ANION GAP 10 MEQ/L (5-15); AST (GOT) 26 U/L (15-37); BICARBONATE 26.3 MEQ/L (21.0-32.0); BLOOD UREA NITROGEN 14 MG/DL (7-18); CHLORIDE 105 MEQ/L (98-107); GLOMERULAR FILTRATION RATE 97 ML/MIN (>89); POTASSIUM 3.6 MEQ/L (3.5-5.1); SODIUM (NA) 141 MEQ/L (136-145); TOTAL BILIRUBIN ADULT 0.7 MG/DL (0.2-1.0)
[2016-07-30] MEDS: TAMSULOSIN HCL 0.4 MG CAP PO SCH ×2 (08:44→10:04)
[2016-07-30] MEDS: ASPIRIN 81 MG CHEW TAB CHEW SCH ×2 (08:44→10:05)
[2016-07-30] MEDS: PRIMIDONE 250 MG TAB PO SCH ×4 (08:45→18:00)
[2016-07-30] MEDS: LISINOPRIL 5 MG TAB PO SCH ×2 (08:45→10:05)
[2016-07-30] MEDS: FUROSEMIDE 40 MG TAB PO SCH ×2 (08:45→10:05)
[2016-07-30] MEDS: QUEtiapine FUMARATE 25 MG TAB PO SCH ×3 (08:45→21:54)
[2016-07-30] MEDS: CARVEDILOL 12.5 MG TAB PO SCH ×3 (08:45→21:54)
[2016-07-30] MEDS: SODIUM CHLORIDE 0.9% FLUSH 10 ML FLUSH IV FLUSH SCH ×2 (09:00→21:00)
[2016-07-30 11:25] VITALS: BP 109/55; PULSE 78; RESP 19; TEMP 98.5; O2SAT 93
--- NOTE | 2016-07-30 13:20 | HHI.PR ---
Subjective Remarks Follow up for agitation. Mr. Mccoy remains confused and agitated. Patient speaks but in incoherent way. He is asking for box of matches. Currently on bilateral upper extremity restraints. Objective Vitals Vital Signs Date Time Temp Pulse Resp B/P Pulse Ox O2 Delivery O2 Flow Rate FiO2 07/30/16 11:25 98.5 78 19 109/55 93 07/30/16 07:39 97.7 76 18 137/70 94 07/30/16 04:33 98.4 83 24 134/66 90 07/30/16 00:17 97.7 84 20 124/79 96 07/29/16 20:33 98.8 97 20 127/88 95 07/29/16 16:15 97.7 86 128/75 97 I/O 07/29/16 07/29/16 07/29/16 07/30/16 07/30/16 07/30/16 07:00 15:00 23:00 07:00 15:00 23:00 Intake Total 140 ml Balance 140 ml Intake Oral 140 ml # Voids 2 4 Result Diagram: 07/30/16 0557 07/30/16 0557 Objective Remarks GENERAL: Alert, agitated, incoherent speech. SKIN: Warm and dry. HEAD: Normocephalic. EYES: No scleral icterus. No injection or drainage. NECK: Supple, trachea midline. No JVD or lymphadenopathy. CARDIOVASCULAR: Regular rate and rhythm without murmurs, gallops, or rubs. RESPIRATORY: Breath sounds equal bilaterally. No accessory muscle use. GASTROINTESTINAL: Abdomen soft, non-tender, nondistended. MUSCULOSKELETAL: No cyanosis, or edema. BACK: Nontender without obvious deformity. No CVA tenderness. Procedures None. A/P Assessment and Plan Mr. Mccoy is an 85 year old male with a history of CAD, CHF, Afib who presented to the ED one day after discharge to a SNF with complaints of agitation. He was admitted on 07/25/2016 with altered mental status and suspected UTI. He was empirically treated with Ceftriaxone. However, cx grew lactobacillus which is typically part of the normal kian. Patient did not have leukocytosis, fever. Urine culture during this admission is unremarkable. - Acute delirium - Patient was evaluated by psychiatry. Seroquel 25 mg BID and Haldol IM PRN recommended. - We'll administer Seroquel 25 mg tonight and continue Seroquel 25 mg twice a day. - Patient is requiring 2 point restraints. If no improvement, patient may need in-patient psychiatry treatment. - Consider Zyprexa as well if okay with Psychiatry and/or Consider Psychiatry admission. - Hypertension - CAD - Continue Aspirin 81mg, Carvedilol 12.5mg BID, Lisinopril 5mg - BPH - continue Flomax. Full code. SCDs. Evie Olea DO Jul 30, 2016 1:20 pm
[2016-07-30 19:21] VITALS: BP 135/73; PULSE 73; RESP 20; TEMP 98.3; O2SAT 95
[2016-07-30] MEDS: MIRTAZAPINE 15 MG TAB PO SCH (21:54)
[2016-07-31 00:14] VITALS: BP 127/65; PULSE 78; RESP 20; TEMP 98; O2SAT 95
[2016-07-31 04:02] VITALS: BP 126/58; PULSE 63; RESP 20; TEMP 97.6
[2016-07-31] MEDS: INSULIN ASPART SUPPLEMENTAL SCALE SQ SCH ×4 (06:24→21:00)
[2016-07-31 07:36] VITALS: BP 129/63; PULSE 87; RESP 20; TEMP 99; O2SAT 94
[2016-07-31] MEDS: ASPIRIN 81 MG CHEW TAB CHEW SCH (08:22)
[2016-07-31] MEDS: PRIMIDONE 250 MG TAB PO SCH ×3 (08:22→18:13)
[2016-07-31] MEDS: TAMSULOSIN HCL 0.4 MG CAP PO SCH (08:22)
[2016-07-31] MEDS: LISINOPRIL 5 MG TAB PO SCH (08:22)
[2016-07-31] MEDS: CARVEDILOL 12.5 MG TAB PO SCH ×2 (08:23→21:00)
[2016-07-31] MEDS: SODIUM CHLORIDE 0.9% FLUSH 10 ML FLUSH IV FLUSH SCH ×2 (08:23→21:00)
[2016-07-31] MEDS: FUROSEMIDE 40 MG TAB PO SCH (08:23)
[2016-07-31] MEDS: QUEtiapine FUMARATE 25 MG TAB PO SCH ×2 (08:26→21:00)
--- NOTE | 2016-07-31 08:40 | HHI.PR ---
Subjective Remarks Follow-up for agitation. The patient and recent admission for delirium and UTI. UTI was treated. The patient was discharged to SNF. He was at SNF for one day and then sent back to [facility] due to agitation. He does have a history of dementia. Discussed with RN, patient remains in restraints and agitated, requesting mechanical soft diet as patient has no dentures currently. Patient is awake and alert, but only mumbles incoherently. Does not voice any specific complaints. Objective Vitals Vital Signs Date Time Temp Pulse Resp B/P Pulse Ox O2 Delivery O2 Flow Rate FiO2 07/31/16 07:36 99.0 87 20 129/63 94 07/31/16 04:02 97.6 63 20 126/58 07/31/16 00:14 98.0 78 20 127/65 95 07/30/16 19:21 98.3 73 20 135/73 95 07/30/16 11:25 98.5 78 19 109/55 93 I/O 07/30/16 07/30/16 07/30/16 07/31/16 07/31/16 07/31/16 07:00 15:00 23:00 07:00 15:00 23:00 Intake Total 120 ml 120 ml Balance 120 ml 120 ml Intake Oral 120 ml 120 ml # Voids 4 1 1 Result Diagram: 07/30/16 0557 07/30/16 0557 Objective Remarks GENERAL: Well-developed well-nourished. In no acute distress. SKIN: Warm and dry. No lesions noted. HEENT: Normocephalic. Pupils equal and round. Mucous membranes pink and moist. CARDIOVASCULAR: Regular rate and rhythm. No murmur appreciated. RESPIRATORY: No accessory muscle use. Clear to auscultation. Breath sounds equal bilaterally. GASTROINTESTINAL: Abdomen soft, non-tender, nondistended. Bowel sounds x4. MUSCULOSKELETAL: No obvious deformities. No clubbing or cyanosis. No edema. NEUROLOGICAL: Awake and alert. Moves upper and lower extremities spontaneously. Mumbling incoherent speech. PSYCHIATRIC: Agitated but calm mood and affect; insight and judgment poor. Procedures None. A/P Assessment and Plan Mr. Mccoy is an 85 year old male with a history of CAD, CHF, Afib who presented to the ED with complaints of agitation. He was admitted on 07/25/2016 with altered mental status and suspected UTI. He was empirically treated with Ceftriaxone. However, cx grew lactobacillus which is typically part of the normal kian. Patient did not have leukocytosis, fever. He was discharged to SNF, and was sent back to [facility] after 1 day due to agitation. Urine culture during this admission is unremarkable. - Acute delirium on chronic dementia - Head CT 07/25/16 showed no acute changes, unlikely NPH per previous discussion with radiologist - Patient was evaluated by psychiatry. Seroquel 25 mg BID and Haldol IM PRN recommended. - Continue Seroquel 25 mg twice a day. - Patient is requiring 2 point restraints. If no improvement, patient may need in-patient psychiatry treatment. - We will ask psychiatry for reevaluation - We will check for medical etiologies of dementia including TSH, B12, RPR, ammonia, although these were normal during previous admission in 2011 - Hypertension - CAD - Continue Aspirin 81mg, Carvedilol 12.5mg BID, Lisinopril 5mg - BPH - continue Flomax. Full code. SCDs. Discharge Planning The patient will likely require long-term care, but may need psychiatric stabilization prior to that. Otis Viveros Jul 31, 2016 08:40 Ronald Kebede DO Jul 31, 2016 16:51
[2016-07-31 11:26] VITALS: BP 121/70; PULSE 70; RESP 20; TEMP 99.4; O2SAT 93
--- NOTE | 2016-07-31 15:41 | HHI.PYPN ---
Subjective Remarks Asked to return to reassess pt. Patient seen and examined. Chart reviewed. Patient seen by Dr. Campbell 07/29 with diagnosis of Dementia with behavioral disturbance, recommended Seroquel 25mg BID and Haldol PRN. Patient is also on Remeron. Received 1 dose of Haldol PRN shortly before noon today. Per RN, mental status continues to fluctuate; patient has been intermittently agitated and calling out. On my exam, patient is sedated. He is in bilateral soft wrist restraints. He awakens briefly to loud verbal stimuli but lapses quickly back into sleep. Presently calm. Does not follow even simple commands. Limited exam due to sedation. Review of Systems ROS Limitations: Altered Mental Status, Poor Historian Objective Alert: No (sedated) [place]: Person (unable to assess) Mood: Other (unable to assess) Affect: Flat Memory Intact: Comment (Unable to assess) Hallucinations: Other (Unable to assess) Delusions: No (Unable to assess) Delusion Type: Other (Unable to assess) Suicidal: Ideation (Unable to assess) Homicidal: Ideation (Unable to assess) Insight/Judgement Presently absent. Remarks No hand tremor, no dystonia, no dyskinesia noted. No other abnormal motor movements noted. Unable to assess thought process. No speech. Labs Test 07/31/16 10:34 Ammonia 31 MCMOL/L Vitamin B12 Level 592 PG/ML Thyroid Stimulating Hormone 0.825 uIU/ML 3rd Gen Date/Time Procedure Status Source Growth 07/29/16 00:00 Urine Culture - Final Complete Urine Clean Catch NO GROWTH IN 48 HOURS. Labs reviewed. I note RPR is still pending. Urine culture negative. Vitals/IOs Vital Signs Date Time Temp Pulse Resp B/P Pulse Ox O2 Delivery O2 Flow Rate FiO2 07/31/16 11:26 99.4 70 20 121/70 93 07/29/16 11:18 Room Air Intake and Output 07/30/16 07/30/16 07/31/16 08:00 16:00 00:00 Intake Total 120 ml Balance 120 ml Assessment & Plan Problem List: (1) Delirium superimposed on dementia ICD Code: F05 Assessment & Plan I suspect the patient remains delirious given ongoing fluctuating mental status. Urine culture was negative and so it is unlikely that UTI is the tank driver for altered mental status. I wonder if medications might not be playing a role at this point. I would recommend holding patient's Remeron temporarily to see if delirium improves. It may also be necessary to replace Seroquel with a less sedating antipsychotic. Limit anticholinergics, antihistamines, opiates , and benzos as all can worsen mental status. Encourage mobilization. Frequent reorientation. Aggressive treatment of urinary retention and constipation. Assistive devices (like eyeglasses and hearing aids) at the bedside. Try to limit use of restraints; consider a sitter instead. Cognitive trajectories following acute delirium can be quite slow to recover, and there may be some decrement in overall cognitive and functional status as a consequence of episodes of delirium. Case d/w RN. I will ask Dr. Campbell to follow up after the weekend. Justification for Cont. Inpt. . Vipin Argueta MD Jul 31, 2016 15:41
[2016-07-31 15:46] VITALS: BP 134/63; PULSE 72; RESP 18; TEMP 98; O2SAT 98
[2016-07-31 21:53] VITALS: BP 137/87; PULSE 75; RESP 12; TEMP 97.7; O2SAT 97
[2016-08-01 01:49] VITALS: BP 167/78; PULSE 69; RESP 18; TEMP 97.9; O2SAT 95
[2016-08-01 05:15] VITALS: BP 133/78; PULSE 79; RESP 18; TEMP 98.7; O2SAT 97
[2016-08-01] MEDS: INSULIN ASPART SUPPLEMENTAL SCALE SQ SCH ×4 (07:00→20:59)
[2016-08-01 08:00] VITALS: BP 130/58; PULSE 74; RESP 16; TEMP 98.1; O2SAT 95
[2016-08-01] MEDS: SODIUM CHLORIDE 0.9% FLUSH 10 ML FLUSH IV FLUSH SCH ×2 (09:00→20:59)
[2016-08-01] MEDS: TAMSULOSIN HCL 0.4 MG CAP PO SCH (09:00)
[2016-08-01] MEDS: QUEtiapine FUMARATE 25 MG TAB PO SCH ×2 (09:00→20:58)
[2016-08-01] MEDS: CARVEDILOL 12.5 MG TAB PO SCH ×2 (09:00→20:58)
[2016-08-01] MEDS: FUROSEMIDE 40 MG TAB PO SCH (09:00)
[2016-08-01] MEDS: PRIMIDONE 250 MG TAB PO SCH ×3 (09:00→17:37)
[2016-08-01] MEDS: LISINOPRIL 5 MG TAB PO SCH (09:00)
[2016-08-01] MEDS: ASPIRIN 81 MG CHEW TAB CHEW SCH (09:00)
[2016-08-01 12:00] VITALS: BP 92/57; PULSE 71; RESP 16; TEMP 98.2; O2SAT 94
--- NOTE | 2016-08-01 12:08 | HHI.PR ---
Subjective Remarks Follow-up for dementia with agitation. Seen with RN at bedside. Patient is much more awake and coherent today. Currently out of restraints. Oriented to self, knows he is in a hospital, disoriented to time. He's been eating. He is not sure when his last bowel movement was. He wants to get out of bed and go home. He states he's been living independently. Objective Vitals Vital Signs Date Time Temp Pulse Resp B/P Pulse Ox O2 Delivery O2 Flow Rate FiO2 08/01/16 08:00 98.1 74 16 130/58 95 08/01/16 05:15 98.7 79 18 133/78 97 08/01/16 01:49 97.9 69 18 167/78 95 07/31/16 21:53 97.7 75 12 137/87 97 07/31/16 15:46 98.0 72 18 134/63 98 I/O 07/31/16 07/31/16 07/31/16 08/01/16 08/01/16 08/01/16 07:00 15:00 23:00 07:00 15:00 23:00 Intake Total 120 ml 720 ml Output Total 600 ml Balance 120 ml 120 ml Intake Oral 120 ml 720 ml Output Urine Total 600 ml # Voids 1 3 3 # Bowel Movements 1 Result Diagram: 07/30/16 0557 07/30/1657 Objective Remarks GENERAL: Well-developed well-nourished. In no acute distress. Hard of hearing. SKIN: Warm and dry. No lesions noted. HEENT: Normocephalic. Pupils equal and round. Mucous membranes pink and moist. CARDIOVASCULAR: Regular rate and rhythm. No murmur appreciated. RESPIRATORY: No accessory muscle use. Clear to auscultation. Breath sounds equal bilaterally. GASTROINTESTINAL: Abdomen soft, non-tender, nondistended. Bowel sounds x4. MUSCULOSKELETAL: No obvious deformities. No clubbing or cyanosis. No edema. NEUROLOGICAL: Awake and alert. Normal speech. Moves upper and lower extremities spontaneously and to command. PSYCHIATRIC: Labile mood and demented affect; insight and judgment limited. Procedures None. Medications and IVs Current Medications Medications (Trade) Dose Ordered Sig/Mitzi Route Start Time Stop Time Status Last Admin (Aspirin Chew) 81 mg DAILY CHEW 07/29/16 09:00 08/01/16 09:00 (Coreg) 12.5 mg BID PO 07/29/16 09:00 08/01/16 09:00 (Lasix) 40 mg DAILY PO 07/29/16 09:00 08/01/16 09:00 (Prinivil) 5 mg DAILY PO 07/29/16 09:00 08/01/16 09:00 (Remeron) 15 mg HS PO 07/29/16 21:00 Hold 07/30/16 21:54 (Mysoline) 250 mg TID PO 07/29/16 09:00 08/01/16 12:16 (Flomax) 0.4 mg DAILY PO 07/29/16 09:00 08/01/16 09:00 (Ultram) 50 mg Q6H PRN PO 07/29/16 01:30 Patient Own Medication PT OWN MED: Simvasta... HS PO 07/29/16 21:00 Hold (NS Flush) 2 ml UNSCH PRN IV FLUSH 07/29/16 01:30 (NS Flush) 2 ml BID IV FLUSH 07/29/16 09:00 08/01/16 09:00 (Zofran Inj) 4 mg Q6H PRN IVP 07/29/16 01:30 (Narcan Inj) 0.4 mg UNSCH PRN IV 07/29/16 01:30 (Haldol Inj) 2 mg Q8H PRN IM 07/29/16 11:15 07/31/16 11:49 (SEROquel) 25 mg BID PO 07/30/16 09:00 08/01/16 09:00 A/P Problem List: (1) Delirium superimposed on dementia ICD Code: F05 Status: Acute (2) Dementia with behavioral disturbance ICD Code: F03.91 Status: Acute (3) Agitation ICD Code: R45.1 Status: Acute Assessment and Plan Mr. Mccoy is an 85 year old male with a history of CAD, CHF, Afib who presented to the ED with complaints of agitation. He was admitted on 07/25/2016 with altered mental status and suspected UTI. He was empirically treated with Ceftriaxone. However, cx grew lactobacillus which is typically part of the normal kian. Patient did not have leukocytosis, fever. He was discharged to SNF, and was sent back to [place] after 1 day due to agitation. Urine culture during this admission is unremarkable. - Acute delirium on chronic dementia - Head CT 07/25/16 showed no acute changes, unlikely NPH per previous discussion with radiologist - Patient was evaluated by psychiatry. Seroquel 25 mg BID and Haldol IM PRN recommended. - Continue Seroquel 25 mg twice a day. - If no improvement, patient may need in-patient psychiatry treatment. - Psychiatry asked for reevaluation, will continue to follow. Recommended holding Remeron. Recommended sitter prior to restraints if possible. - Checked for medical etiologies of dementia including TSH, B12, RPR, ammonia. Within normal limits. RPR pending. - Hypertension - CAD - Continue Aspirin 81mg, Carvedilol 12.5mg BID, Lisinopril 5mg - BPH - continue Flomax. Full code. SCDs. Discharge Planning The patient will likely require long-term care, but may need psychiatric stabilization prior to that. Otis Viveros Aug 01, 2016 12:08 Ronald Kebede DO Aug 01, 2016 14:43
[2016-08-01 16:00] VITALS: BP 119/73; PULSE 88; RESP 24; TEMP 98.1; O2SAT 96
[2016-08-01 20:00] VITALS: BP 129/62; PULSE 91; RESP 18; TEMP 99.1; O2SAT 96
[2016-08-02] VITALS: BP 115/60; PULSE 73; RESP 17; TEMP 98.1; O2SAT 96
[2016-08-02 04:00] VITALS: BP 107/59; PULSE 69; RESP 17; TEMP 98.6; O2SAT 95
[2016-08-02] MEDS: INSULIN ASPART SUPPLEMENTAL SCALE SQ SCH ×4 (05:58→21:00)
[2016-08-02 08:00] VITALS: BP 156/65; PULSE 73; RESP 16; TEMP 98.5; O2SAT 95
[2016-08-02] MEDS: QUEtiapine FUMARATE 25 MG TAB PO SCH ×2 (08:57→21:16)
[2016-08-02] MEDS: LISINOPRIL 5 MG TAB PO SCH (08:57)
[2016-08-02] MEDS: FUROSEMIDE 40 MG TAB PO SCH (08:57)
[2016-08-02] MEDS: CARVEDILOL 12.5 MG TAB PO SCH ×2 (08:57→21:16)
[2016-08-02] MEDS: TAMSULOSIN HCL 0.4 MG CAP PO SCH (08:57)
[2016-08-02] MEDS: ASPIRIN 81 MG CHEW TAB CHEW SCH (08:58)
[2016-08-02] MEDS: SODIUM CHLORIDE 0.9% FLUSH 10 ML FLUSH IV FLUSH SCH ×2 (08:58→21:16)
[2016-08-02] MEDS: PRIMIDONE 250 MG TAB PO SCH ×3 (08:58→16:46)
[2016-08-02 12:00] VITALS: BP_SYST 114; BP_SYST 133; BP_DIAS 58; BP_DIAS 61; PULSE 76; PULSE 94; RESP 12; RESP 16; TEMP 97.9; TEMP 98.5; O2SAT 94; O2SAT 96
--- NOTE | 2016-08-02 12:57 | HHI.PR ---
Subjective Remarks Follow up for dementia with agitation. The patient is awake, alert, oriented to self and knows he is in a hospital and not at home. He wants to go home. He states his last bowel movement was yesterday. He is eating. He has no medical complaints. Objective Vitals Vital Signs Date Time Temp Pulse Resp B/P Pulse Ox O2 Delivery O2 Flow Rate FiO2 08/02/16 08:00 98.5 73 16 156/65 95 08/02/16 04:00 98.6 69 17 107/59 95 08/02/16 00:00 98.1 73 17 115/60 96 08/01/16 20:00 99.1 91 18 129/62 96 08/01/16 16:00 98.1 88 24 119/73 96 I/O 08/01/16 08/01/16 08/01/16 08/02/16 08/02/16 08/02/16 07:00 15:00 23:00 07:00 15:00 23:00 Intake Total 720 ml 360 ml 240 ml 180 ml Output Total 600 ml 1125 ml 150 ml 300 ml Balance 120 ml -765 ml 90 ml -120 ml Intake Oral 720 ml 360 ml 240 ml 180 ml Output Urine Total 600 ml 1125 ml 150 ml 300 ml # Voids 3 # Bowel Movements 1 0 1 Result Diagram: 07/30/16 0557 07/30/16 05 Objective Remarks GENERAL: Well-nourished, well-developed elderly male patient in [facility]. SKIN: Warm and dry. No rash. HEENT: Normocephalic. Atraumatic. Pupils equal and round. No scleral icterus. No injection or drainage. Mucous membranes pink and moist. NECK: Supple. Trachea midline. CARDIOVASCULAR: Regular rate and rhythm. S1, S2 noted. No murmur appreciated. RESPIRATORY: No accessory muscle use. Clear to auscultation. Breath sounds equal bilaterally. GASTROINTESTINAL: Abdomen soft, non-tender, nondistended. Normoactive bowel sounds x4. MUSCULOSKELETAL: No obvious deformities. Extremities without clubbing, cyanosis , or edema. NEUROLOGICAL: Awake and alert. No obvious cranial nerve deficits. Motor grossly within normal limits. Moves all extremities spontaneously. Normal speech. PSYCHIATRIC: Appropriate mood and affect; insight and judgment limited. Procedures None. Medications and IVs Current Medications Medications (Trade) Dose Ordered Sig/Mitzi Route Start Time Stop Time Status Last Admin (Aspirin Chew) 81 mg DAILY CHEW 07/29/16 09:00 08/02/16 08:58 (Coreg) 12.5 mg BID PO 07/29/16 09:00 08/02/16 08:57 (Lasix) 40 mg DAILY PO 07/29/16 09:00 08/02/16 08:57 (Prinivil) 5 mg DAILY PO 07/29/16 09:00 08/02/16 08:57 (Remeron) 15 mg HS PO 07/29/16 21:00 Hold 07/30/16 21:54 (Mysoline) 250 mg TID PO 07/29/16 09:00 08/02/16 08:58 (Flomax) 0.4 mg DAILY PO 07/29/16 09:00 08/02/16 08:57 (Ultram) 50 mg Q6H PRN PO 07/29/16 01:30 Patient Own Medication PT OWN MED: Simvasta... HS PO 07/29/16 21:00 Hold (NS Flush) 2 ml UNSCH PRN IV FLUSH 07/29/16 01:30 (NS Flush) 2 ml BID IV FLUSH 07/29/16 09:00 08/02/16 08:58 (Zofran Inj) 4 mg Q6H PRN IVP 07/29/16 01:30 (Narcan Inj) 0.4 mg UNSCH PRN IV 07/29/16 01:30 (Haldol Inj) 2 mg Q8H PRN IM 07/29/16 11:15 07/31/16 11:49 (SEROquel) 25 mg BID PO 07/30/16 09:00 08/02/16 08:57 A/P Problem List: (1) Delirium superimposed on dementia ICD Code: F05 Status: Acute (2) Dementia with behavioral disturbance ICD Code: F03.91 Status: Acute (3) Agitation ICD Code: R45.1 Status: Acute Assessment and Plan 85 year old male with a history of CAD, CHF, Afib who presented to the ED with complaints of agitation. He was admitted on 07/25/2016 with altered mental status and suspected UTI. He was empirically treated with Ceftriaxone. However, cx grew lactobacillus which is typically part of the normal kian. Patient did not have leukocytosis, fever. He was discharged to SNF, and was sent back to [place] after 1 day due to agitation. Urine culture during this admission is unremarkable. - Acute delirium on chronic dementia with agitation - Head CT 07/25/16 showed no acute changes, unlikely NPH per previous discussion with radiologist - Patient was evaluated by psychiatry. Seroquel 25 mg BID and Haldol IM PRN recommended. - Continue Seroquel 25 mg twice a day, patient seems to be responding well so far. - If no improvement, patient may need inpatient psychiatry treatment. - Psychiatry asked for reevaluation, will continue to follow. Recommended holding Remeron. Recommended sitter prior to restraints if possible. - Checked for medical etiologies of dementia including TSH, B12, RPR, ammonia. Within normal limits. RPR pending. - Hypertension - CAD - Continue Aspirin 81mg, Carvedilol 12.5mg BID, Lisinopril 5mg -BP fairly well controlled - BPH - continue Flomax. Full code. SCDs. Written by Merry Escobar, acting as scribe for Dr. Kebede on 08/02/16 at 11:25. Discharge Planning Plan for patient to return to [facility] after psychiatric stabilization. Merry Escobar PA-C Aug 02, 2016 12:57 pm
[2016-08-02 16:00] VITALS: BP 103/59; PULSE 68; RESP 16; TEMP 98.4; O2SAT 97
[2016-08-02 20:00] VITALS: BP 116/57; PULSE 76; RESP 22; TEMP 98.7; O2SAT 96
[2016-08-03 00:22] VITALS: BP 103/56; PULSE 67; RESP 20; TEMP 98.1; O2SAT 97
[2016-08-03 04:00] VITALS: BP 132/58; PULSE 69; RESP 20; TEMP 98.1; O2SAT 96
[2016-08-03] MEDS: INSULIN ASPART SUPPLEMENTAL SCALE SQ SCH (05:43)
[2016-08-03 08:00] VITALS: BP 119/65; PULSE 67; RESP 18; TEMP 98.3; O2SAT 92
[2016-08-03] MEDS: PRIMIDONE 250 MG TAB PO SCH (08:55)
[2016-08-03] MEDS: LISINOPRIL 5 MG TAB PO SCH (08:55)
[2016-08-03] MEDS: ASPIRIN 81 MG CHEW TAB CHEW SCH (08:56)
[2016-08-03] MEDS: CARVEDILOL 12.5 MG TAB PO SCH (08:56)
[2016-08-03] MEDS: TAMSULOSIN HCL 0.4 MG CAP PO SCH (08:57)
[2016-08-03] MEDS: FUROSEMIDE 40 MG TAB PO SCH (08:57)
[2016-08-03] MEDS: QUEtiapine FUMARATE 25 MG TAB PO SCH (08:57)
[2016-08-03] MEDS: SODIUM CHLORIDE 0.9% FLUSH 10 ML FLUSH IV FLUSH SCH (09:00)
[2016-08-03] MEDS ORDERED: QUET1TAB7 PO (09:35)
--- NOTE | 2016-08-03 09:35 | HHI.DCPOC ---
Discharge Care Plan Diagnosis: (1) Agitation (2) Delirium superimposed on dementia (3) Dementia with behavioral disturbance (4) DM (diabetes mellitus) (5) CAD (coronary artery disease) Goals to Promote Your Health * To prevent worsening of your condition and complications * To maintain your health at the optimal level Directions to Meet Your Goals Take your medications as prescribed Follow your dietary instruction Follow activity as directed Keep your appointments as scheduled Take your immunizations and boosters as scheduled If your symptoms worsen call your PCP, if no PCP go to Urgent Care Center or Emergency Room Smoking is Dangerous to Your Health. Avoid second hand smoke Call the 24-hour hour crisis hotline for domestic abuse at Ronald Kebede DO Aug 03, 2016 09:35
--- NOTE | 2016-08-03 09:41 | HHI.DS ---
Discharge Summary Admission Date Jul 29, 2016 at 01:03 Discharge Date: Aug 03, 2016 Admitting Diagnosis urinary tract infection, agitation (1) Delirium superimposed on dementia ICD Code: F05 (2) Dementia with behavioral disturbance ICD Code: F03.91 Diagnosis: Principal (3) Agitation ICD Code: R45.1 Diagnosis: Principal Procedures None. Brief History - From Admission Mr. Mccoy is an 85 year old male with a history of CAD, CHF, Afib who presented to the ED one day after discharge to a SNF with complaints of agitation. He was admitted on 07/25/2016 with altered mental status and suspected UTI. He was empirically treated with Ceftriaxone. However, cx grew lactobacillus which is typically part of the normal kian. Patient did not have leukocytosis, fever. Urine culture during this admission is unremarkable. He returned from SNF due to agitation. Time of this interview patient is restrained with bilateral wrist restraints. He cannot participate reliably to this interview. CBC/BMP: 07/30/16 0557 07/30/16 0557 PE at Discharge GENERAL: Well-nourished, well-developed elderly male patient in [facility]. SKIN: Warm and dry. No rash. HEENT: Normocephalic. Atraumatic. Pupils equal and round. No scleral icterus. No injection or drainage. Mucous membranes pink and moist. NECK: Supple. Trachea midline. CARDIOVASCULAR: Regular rate and rhythm. S1, S2 noted. No murmur appreciated. RESPIRATORY: No accessory muscle use. Clear to auscultation. Breath sounds equal bilaterally. GASTROINTESTINAL: Abdomen soft, non-tender, nondistended. Normoactive bowel sounds x4. MUSCULOSKELETAL: No obvious deformities. Extremities without clubbing, cyanosis , or edema. NEUROLOGICAL: Awake and alert. No obvious cranial nerve deficits. Motor grossly within normal limits. Moves all extremities spontaneously. Normal speech. PSYCHIATRIC: Appropriate mood and affect. Pt update on day of discharge The patient was feeling well at this time. He was anxious to get out of the hospital. He had no acute complaints. Discussed with nursing and case management. Hospital Course 85 year old male with a history of CAD, CHF, Afib who presented to the ED with complaints of agitation. He was admitted on 07/25/2016 with altered mental status and suspected UTI. He was empirically treated with Ceftriaxone. However, cx grew lactobacillus.. Patient did not have leukocytosis, fever. He was discharged to SNF, and was sent back to [place] after 1 day due to agitation. Urine culture during this admission is unremarkable. Head CT 07/25/16 showed no acute changes. Patient was evaluated by psychiatry. Seroquel 25 mg BID and Haldol IM PRN recommended. Continue Seroquel 25 mg twice a day, patient seems to be responding well so far. Remeron was recommended to be discontinued by psychiatry. He will follow up with his PCP. He worked with physical therapy and speech therapy. Pt Condition on Discharge: Fair Discharge Disposition: Discharge to SNF Discharge Time: > 30 minutes Discharge Instructions DIET: Follow Instructions for: Diabetic Diet Speech Therapy-Diet Recommends: Mechanical Soft Activities you can perform: Weight Bearing as Chela Follow up Referrals: PCP Follow-up - 1 Week SNF/[facility]/ with [facility] New Medications: Quetiapine (Quetiapine) 25 Mg Tab 25 MG PO BID Agitation #60 TAB Continued Medications: Aspirin (Aspirin Low Dose) 81 Mg Chew 81 MG CHEW DAILY Ref 0 TAB Carvedilol (Coreg) 12.5 Mg Tab 12.5 MG PO BID #60 Ref 0 TAB Folic Acid (Folic Acid) 5 Mg Cap 1 MG PO DAILY Nutritional Supplement Ref 0 CAP Furosemide (Lasix) 40 Mg Tab 40 MG PO DAILY #30 Ref 0 TAB Insulin Human Isophane-Regular 70-30 Inj (Novolin 70-30 Inj) 1,000 Unit/10 Ml Vial 5 UNITS SQ DAILY NEB Blood Sugar Management Ref 0 ML Lisinopril (Lisinopril) 5 Mg Tab 5 MG PO DAILY Blood Pressure Management #30 Ref 0 TAB Magnesium Chloride (Mag64) 64 Mg Tab 64 MG PO BID Ref 0 TAB Multiple Vitamins W/ Minerals (Multivitamin Adults) 1 Tab 1 TAB PO DAILY Nutritional Supplement Ref 0 TAB Primidone (Primidone) 250 Mg Tab 250 MG PO TID Control Seizures #90 Ref 0 TAB Simvastatin (Zocor) 20 Mg Tab 20 MG PO HS Cholesterol Management #30 Ref 0 TAB Tamsulosin (Flomax) 0.4 Mg Cap 0.4 MG PO DAILY Manage Prostate Problems #30 Ref 0 CAP Thiamine HCl (Thiamine HCl) 1 Pow Pow Discontinued Medications: Mirtazapine (Mirtazapine) 15 Mg Tab 15 MG PO HS Depression Control #30 Ref 0 TAB Tramadol (Ultram) 50 Mg Tab 50 MG PO Q6H PRN PAIN #20 Ref 0 TAB Ronald Kebede DO Aug 03, 2016 09:41
[2016-08-03 11:18] VITALS: BP 114/62; PULSE 73; RESP 17; TEMP 98.5; O2SAT 96
== END 2016-08-03 11:55 ==
LOC: NEPA 23:01 → NEDA 07-29 01:03 → NEDH 07-29 05:03 → NEPFCDU 07-29 15:57 → N04B 07-31 18:40
PROVIDERS: ADMIT Hospitalist; ATTEND Hospitalist
DX: F05 Delirium due to known physiological condition (principal); F03.91 Unspecified dementia, unspecified severity, with behavioral disturbance; I25.10 Atherosclerotic heart disease of native coronary artery without angina pectoris; I11.0 Hypertensive heart disease with heart failure; I50.9 Heart failure, unspecified; E78.5 Hyperlipidemia, unspecified; N40.0 Benign prostatic hyperplasia without lower urinary tract symptoms; I48.91 Unspecified atrial fibrillation; F41.9 Anxiety disorder, unspecified; F32.9 Major depressive disorder, single episode, unspecified; E78.00 Pure hypercholesterolemia, unspecified; J44.9 Chronic obstructive pulmonary disease, unspecified; E11.9 Type 2 diabetes mellitus without complications; M19.90 Unspecified osteoarthritis, unspecified site; Z95.5 Presence of coronary angioplasty implant and graft; Z95.1 Presence of aortocoronary bypass graft; Z79.82 Long term (current) use of aspirin; Z87.891 Personal history of nicotine dependence; Z85.828 Personal history of other malignant neoplasm of skin; Z88.5 Allergy status to narcotic agent; Z88.8 Allergy status to other drugs, medicaments and biological substances
CPT/HCPCS: 80053; 81001; 82140; 82607; 82948; 84153; 84443; 85025; 86592; 87086; 92526; 92610; 96374; 97110; 97163; 99285; G0378; G8987; G8988; G8996; G8997; G8998; J0696; J1630; J1815